=== PATIENT | male | born 1955 | race African-American/Black ===

== ENCOUNTER 2020-06-07 16:21 | Inpatient (IN) | payer OTHER, MEDICARE, MEDICAID ==
[~2020-06-07] VITALS: Ht 175.3 cm; Wt 86.2 kg
[2020-06-07] MEDS ORDERED: SODIUM CHLORIDE 0.9% 250 ML IV ONE (17:20)
[2020-06-07 19:08] LABS: HEMATOCRIT. 35.3 % (42.0-52.0); HEMOGLOBIN. 11.4 g/dL (14.0-18.0); MEAN CORPUSCULAR HEMOGLOBIN 29.5 pg (28.0-32.0); MEAN CORPUSCULAR VOLUME 91.4 fL (80.0-94.0); MEAN PLATELET VOLUME 8.5 fl (7.4-10.4); PLATELET 259 x1000/uL (130-400); RED BLOOD CELL COUNT 3.86 mill/uL (4.7-6.1); RED CELL DISTRIBUTION WIDTH 18.1 % (11.6-14.6)
[2020-06-07 19:15] LABS: CHLORIDE 96 mEq/L (98-107)
[2020-06-07 19:21] LABS: INR 1.2
[2020-06-07 19:28] LABS: PLATELET ESTIMATE NORMAL
[2020-06-07] MEDS ORDERED: INSULIN REGULAR (HUMULIN R) 300UNITS/3ML IV ONE (19:30)
[2020-06-07] MEDS ORDERED: SODIUM BICARBONATE 8.4% 1 MEQ/ML 50ML SYR IV ONE (19:30)
[2020-06-07] MEDS ORDERED: DEXTROSE 50% WATER 50ML SYRINGE IV ONE (19:30)
[2020-06-07] MEDS ORDERED: LORAZEPAM 2MG/ML CPJ IM ONE (19:45)
[2020-06-07] MEDS ORDERED: VANCOMYCIN 1 G PREMIX 200 ML IV ONE (20:00)
[2020-06-07] MEDS ORDERED: PIPERACILLIN/TAZ 3.375G PREMIX 50 ML IV ONE (20:00)
[2020-06-07 20:41] LABS: CLARITY URINE TURBID (CLEAR); COLOR URINE YELLOW (YELLOW); KETONES URINE TRACE (NEGATIVE); LEUKOCYTE ESTERASE URINE 3+ (NEGATIVE); NITRITE URINE NEGATIVE (NEGATIVE); OCCULT BLOOD URINE 3+ (NEGATIVE); PH URINE 7.5 (4.5-8.0); PROTEIN URINE 4+ (NEGATIVE); SPECIFIC GRAVITY URINE 1.019 (1.005-1.030); UROBILINOGEN URINE 0.2 E.U./dL (0.2-1.0)
[2020-06-07] MEDS: LISINOPRIL 40MG TABLET PO SCH (22:00)
[2020-06-07] MEDS ORDERED: CEFTRIAXONE 1 G PREMIX 50 ML IV SCH (22:00)
[2020-06-07] MEDS: METOPROLOL TARTRATE 25MG TABLET PO SCH ×2 (22:00→22:11)
[2020-06-07] MEDS ORDERED: AMLODIPINE 10MG TABLET PO SCH (22:00)
[2020-06-07] MEDS: AMLODIPINE 5MG TABLET PO SCH (22:00)
[2020-06-07] MEDS: CLONIDINE 0.1MG TABLET PO PRN (22:12)
[2020-06-07 23:00] VITALS: BP_SYST 176; BP_SYST 185; BP_DIAS 112
[2020-06-07] MEDS: LABETALOL 5MG/ML SYR 20 MG/4 ML SYRINGE IV PRN (23:18)
[2020-06-08] VITALS: BP 179/98
[2020-06-08] MEDS: CLONIDINE 0.1MG TABLET PO PRN (01:43)
[2020-06-08] MEDS: ENOXAPARIN 30MG/0.3ML SYR SUBCUT SCH ×2 (03:33→20:39)
[2020-06-08] MEDS ORDERED: CEFTRIAXONE 1,000 MG in DEXTROSE 5% WATER 50 ML IV SCH (04:00)
[2020-06-08 05:36] VITALS: BP 171/98
[2020-06-08] MEDS: LABETALOL 5MG/ML SYR 20 MG/4 ML SYRINGE IV PRN (05:46)
[2020-06-08 07:14] LABS: BASOPHILS % 0.3 % (0.0-2.0); EOSINOPHILS % 0.3 % (0.0-5.0); HEMATOCRIT. 32.9 % (42.0-52.0); HEMOGLOBIN. 10.7 g/dL (14.0-18.0); LYMPHOCYTES % 8.6 % (20.0-50.0); MEAN CORPUSCULAR HEMOGLOBIN 29.8 pg (28.0-32.0); MEAN PLATELET VOLUME 8.8 fl (7.4-10.4); MONOCYTES % 8.9 % (2.0-8.0); NEUTROPHILS % 81.9 % (40.0-76.0); PLATELET 222 x1000/uL (130-400); RED BLOOD CELL COUNT 3.57 mill/uL (4.7-6.1); RED CELL DISTRIBUTION WIDTH 18.6 % (11.6-14.6)
[2020-06-08 08:00] VITALS: BP 162/89
[2020-06-08 08:16] LABS: CHLORIDE 97 mEq/L (98-107)
[2020-06-08 10:51] LABS: HEPATITIS B SURFACE AB < 3.1 mIU/mL
[2020-06-08 11:02] LABS: HEPATITIS B SURFACE ANTIGEN NEGATIVE
[2020-06-08 11:32] LABS: HEPATITIS A AB IGM NEGATIVE (NEGATIVE)
[2020-06-08 12:00] VITALS: BP 156/95
[2020-06-08] MEDS: LISINOPRIL 40MG TABLET PO SCH (14:11)
[2020-06-08] MEDS: AMLODIPINE 5MG TABLET PO SCH (14:11)
[2020-06-08] MEDS: METOPROLOL TARTRATE 25MG TABLET PO SCH (14:11)
[2020-06-08 16:00] VITALS: BP 159/95
[2020-06-08] MEDS: CEFTRIAXONE 1,000 MG in DEXTROSE 5% WATER 50 ML IV SCH (17:38)
[2020-06-08 20:00] VITALS: BP 158/85
[2020-06-08] MEDS: KETOROLAC 15MG/ML VIAL IV PRN (20:39)
[2020-06-09] VITALS: BP 133/71
[2020-06-09] MEDS: KETOROLAC 15MG/ML VIAL IV PRN ×3 (03:08→23:13)
[2020-06-09 04:00] VITALS: BP 138/73
[2020-06-09 08:00] VITALS: BP 136/78
[2020-06-09] MEDS: AMLODIPINE 5MG TABLET PO SCH (09:14)
[2020-06-09] MEDS: LISINOPRIL 40MG TABLET PO SCH (09:14)
[2020-06-09] MEDS: METOPROLOL TARTRATE 25MG TABLET PO SCH ×2 (09:15→23:14)
[2020-06-09 12:00] VITALS: BP 141/80
[2020-06-09] MEDS ORDERED: GENTAMICIN SULFATE 160 MG in SODIUM CHLORIDE 0.9% 50 ML IV NR (12:00)
[2020-06-09] MEDS: ACETAMINOPHEN 325MG TABLET PO PRN (14:38)
[2020-06-09 17:00] LABS: HEMATOCRIT. 32.9 % (42.0-52.0); MEAN CORPUSCULAR HEMOGLOBIN 30.6 pg (28.0-32.0); MEAN CORPUSCULAR VOLUME 91.7 fL (80.0-94.0); MEAN PLATELET VOLUME 8.9 fl (7.4-10.4); PLATELET 208 x1000/uL (130-400); RED BLOOD CELL COUNT 3.59 mill/uL (4.7-6.1); RED CELL DISTRIBUTION WIDTH 18.2 % (11.6-14.6)
[2020-06-09 17:18] LABS: PLATELET ESTIMATE NORMAL
[2020-06-09] MEDS: CEFTRIAXONE 1,000 MG in DEXTROSE 5% WATER 50 ML IV SCH (18:22)
[2020-06-09] MEDS: HYDROCODONE/APAP 7.5/325MG 1 TAB TABLET PO PRN (19:07)
[2020-06-09 20:28] VITALS: BP 148/89
[2020-06-09] MEDS: ENOXAPARIN 30MG/0.3ML SYR SUBCUT SCH (23:13)
[2020-06-09] MEDS: DIPHENHYDRAMINE 50MG/ML VIAL IV PRN (23:25)
[2020-06-10 00:28] VITALS: BP 166/83
[2020-06-10] MEDS: HYDROCODONE/APAP 7.5/325MG 1 TAB TABLET PO PRN ×3 (01:54→17:25)
[2020-06-10 04:00] VITALS: BP 141/96
[2020-06-10 06:02] LABS: BASOPHILS % 0.4 % (0.0-2.0); EOSINOPHILS % 2.4 % (0.0-5.0); HEMATOCRIT. 33.3 % (42.0-52.0); HEMOGLOBIN. 11.3 g/dL (14.0-18.0); LYMPHOCYTES % 9.6 % (20.0-50.0); MEAN CORPUSCULAR HEMOGLOBIN 31.2 pg (28.0-32.0); MEAN CORPUSCULAR VOLUME 91.8 fL (80.0-94.0); MEAN PLATELET VOLUME 8.6 fl (7.4-10.4); MONOCYTES % 10.2 % (2.0-8.0); NEUTROPHILS % 77.4 % (40.0-76.0); PLATELET 182 x1000/uL (130-400); RED BLOOD CELL COUNT 3.63 mill/uL (4.7-6.1); RED CELL DISTRIBUTION WIDTH 17.6 % (11.6-14.6)
[2020-06-10 06:04] LABS: GENTAMICIN RANDOM 3.7 ug/mL
[2020-06-10 08:00] VITALS: BP 134/95
[2020-06-10 12:00] VITALS: BP 159/92
[2020-06-10] MEDS: KETOROLAC 15MG/ML VIAL IV PRN ×2 (12:41→20:55)
[2020-06-10] MEDS: AMLODIPINE 5MG TABLET PO SCH (13:15)
[2020-06-10] MEDS: METOPROLOL TARTRATE 25MG TABLET PO SCH ×2 (13:15→20:47)
[2020-06-10] MEDS: LISINOPRIL 40MG TABLET PO SCH (13:16)
[2020-06-10 16:00] VITALS: BP 110/78
[2020-06-10] MEDS ORDERED: GENTAMICIN 120MG PREMIX 100 ML IV NR (17:00)
[2020-06-10] MEDS: CEFTRIAXONE 1,000 MG in DEXTROSE 5% WATER 50 ML IV SCH (17:22)
[2020-06-10 20:00] VITALS: BP 156/85
[2020-06-10] MEDS: ENOXAPARIN 30MG/0.3ML SYR SUBCUT SCH (20:46)
[2020-06-11] MEDS: HYDROCODONE/APAP 7.5/325MG 1 TAB TABLET PO PRN ×3 (02:02→22:48)
[2020-06-11 04:00] VITALS: BP 138/79
[2020-06-11] MEDS: KETOROLAC 15MG/ML VIAL IV PRN ×2 (05:40→15:43)
[2020-06-11 08:00] VITALS: BP 153/82
[2020-06-11] MEDS: LISINOPRIL 40MG TABLET PO SCH (09:08)
[2020-06-11] MEDS: AMLODIPINE 5MG TABLET PO SCH (09:09)
[2020-06-11] MEDS: METOPROLOL TARTRATE 25MG TABLET PO SCH ×2 (09:09→20:05)
[2020-06-11 12:00] VITALS: BP 134/84
[2020-06-11 16:00] VITALS: BP 111/60
[2020-06-11] MEDS: CEFTRIAXONE 1,000 MG in DEXTROSE 5% WATER 50 ML IV SCH (17:55)
[2020-06-11 20:00] VITALS: BP 139/80
[2020-06-11] MEDS: DIPHENHYDRAMINE 50MG/ML VIAL IV PRN (20:04)
[2020-06-11] MEDS: ENOXAPARIN 30MG/0.3ML SYR SUBCUT SCH (20:08)
[2020-06-11] MEDS: ZOLPIDEM TARTRATE 5MG TABLET PO PRN (21:10)
[2020-06-12 01:29] VITALS: BP 144/74
[2020-06-12] MEDS: KETOROLAC 15MG/ML VIAL IV PRN ×3 (01:29→18:30)
[2020-06-12] MEDS: HYDROCODONE/APAP 7.5/325MG 1 TAB TABLET PO PRN ×3 (05:06→22:01)
[2020-06-12 05:09] VITALS: BP 151/81
[2020-06-12 08:00] VITALS: BP 135/81
[2020-06-12] MEDS: LISINOPRIL 40MG TABLET PO SCH (08:35)
[2020-06-12] MEDS: METOPROLOL TARTRATE 25MG TABLET PO SCH ×2 (08:35→22:01)
[2020-06-12] MEDS: AMLODIPINE 10MG TABLET PO SCH (08:35)
[2020-06-12] MEDS: DIPHENHYDRAMINE 50MG/ML VIAL IV PRN (10:56)
[2020-06-12 12:00] VITALS: BP 137/80
[2020-06-12 16:00] VITALS: BP 149/81
[2020-06-12] MEDS: CEFTRIAXONE 1,000 MG in DEXTROSE 5% WATER 50 ML IV SCH (17:10)
[2020-06-12 21:48] VITALS: BP 129/78
[2020-06-12] MEDS: ZOLPIDEM TARTRATE 5MG TABLET PO PRN (22:01)
[2020-06-12] MEDS: ENOXAPARIN 30MG/0.3ML SYR SUBCUT SCH (22:02)
[2020-06-13] VITALS: BP 122/75
[2020-06-13] MEDS: KETOROLAC 15MG/ML VIAL IV PRN (00:10)
[2020-06-13 04:00] VITALS: BP 129/83
[2020-06-13] MEDS: HYDROCODONE/APAP 7.5/325MG 1 TAB TABLET PO PRN ×3 (04:06→22:37)
[2020-06-13 07:37] LABS: BASOPHILS % 0.3 % (0.0-2.0); EOSINOPHILS % 1.8 % (0.0-5.0); HEMATOCRIT. 26.9 % (42.0-52.0); HEMOGLOBIN. 8.6 g/dL (14.0-18.0); LYMPHOCYTES % 9.4 % (20.0-50.0); MEAN CORPUSCULAR HEMOGLOBIN 29.2 pg (28.0-32.0); MEAN CORPUSCULAR VOLUME 90.9 fL (80.0-94.0); MEAN PLATELET VOLUME 9.3 fl (7.4-10.4); NEUTROPHILS % 79.5 % (40.0-76.0); PLATELET 186 x1000/uL (130-400); RED BLOOD CELL COUNT 2.96 mill/uL (4.7-6.1); RED CELL DISTRIBUTION WIDTH 17.7 % (11.6-14.6)
[2020-06-13] MEDS: METOPROLOL TARTRATE 25MG TABLET PO SCH ×2 (09:00→22:54)
[2020-06-13] MEDS: AMLODIPINE 10MG TABLET PO SCH (09:00)
[2020-06-13 10:25] VITALS: BP 132/73
[2020-06-13 20:00] VITALS: BP 141/84
[2020-06-13] MEDS: ENOXAPARIN 30MG/0.3ML SYR SUBCUT SCH (22:37)
[2020-06-13] MEDS: CEFTRIAXONE 1,000 MG in DEXTROSE 5% WATER 50 ML IV SCH (22:38)
[2020-06-14] MEDS: ZOLPIDEM TARTRATE 5MG TABLET PO PRN ×2 (01:14→20:56)
[2020-06-14 04:00] VITALS: BP 123/72
[2020-06-14 08:00] VITALS: BP 123/64
[2020-06-14 08:57] LABS: BASOPHILS % 0.4 % (0.0-2.0); EOSINOPHILS % 1.4 % (0.0-5.0); HEMATOCRIT. 23.3 % (42.0-52.0); HEMOGLOBIN. 7.7 g/dL (14.0-18.0); LYMPHOCYTES % 11.6 % (20.0-50.0); MEAN CORPUSCULAR HEMOGLOBIN 29.9 pg (28.0-32.0); MEAN CORPUSCULAR VOLUME 90.6 fL (80.0-94.0); NEUTROPHILS % 76.6 % (40.0-76.0); PLATELET 178 x1000/uL (130-400); RED BLOOD CELL COUNT 2.58 mill/uL (4.7-6.1); RED CELL DISTRIBUTION WIDTH 18.1 % (11.6-14.6)
[2020-06-14] MEDS: METOPROLOL TARTRATE 25MG TABLET PO SCH ×2 (09:00→20:56)
[2020-06-14] MEDS: AMLODIPINE 10MG TABLET PO SCH (09:00)
[2020-06-14 12:00] VITALS: BP 126/63
[2020-06-14] MEDS: HYDROCODONE/APAP 7.5/325MG 1 TAB TABLET PO PRN (16:51)
[2020-06-14 20:00] VITALS: BP 126/57
[2020-06-14] MEDS: DIPHENHYDRAMINE 50MG/ML VIAL IV PRN (22:52)
[2020-06-14] MEDS: EPOETIN ALFA 10000UNITS/ML VIAL SUBCUT SCH (23:18)
[2020-06-15] VITALS: BP 107/48
[2020-06-15 08:00] VITALS: BP 109/40
[2020-06-15] MEDS: METOPROLOL TARTRATE 25MG TABLET PO SCH ×2 (08:23→21:00)
[2020-06-15] MEDS: AMLODIPINE 10MG TABLET PO SCH (08:23)
[2020-06-15 12:00] VITALS: BP 100/48
[2020-06-15] MEDS: ACETAMINOPHEN 325MG TABLET PO PRN ×2 (14:22→21:06)
[2020-06-15 16:00] VITALS: BP 108/37
[2020-06-15 20:00] VITALS: BP 93/50
[2020-06-15] MEDS: ZOLPIDEM TARTRATE 5MG TABLET PO PRN (22:33)
[2020-06-16] VITALS (78 sets, daily range): BP systolic 67–174; BP diastolic 32–91
[2020-06-16] MEDS: ACETAMINOPHEN 325MG TABLET PO PRN (04:49)
[2020-06-16] MEDS: METOPROLOL TARTRATE 25MG TABLET PO SCH ×2 (08:37→20:55)
[2020-06-16] MEDS: AMLODIPINE 10MG TABLET PO SCH (08:37)
[2020-06-16] MEDS ORDERED: SODIUM BICARBONATE 8.4% 1 MEQ/ML 50ML SYR IV ONE (09:00)
[2020-06-16] MEDS ORDERED: VECURONIUM BROMIDE 10 MG/VIAL IV ONE (09:00)
[2020-06-16] MEDS ORDERED: ATROPINE SULFATE 1MG/10ML SYR ONE (09:00)
[2020-06-16] MEDS ORDERED: CALCIUM CHLORIDE 1GM/10ML SYR IV ONE (09:00)
[2020-06-16] MEDS ORDERED: SODIUM CHLORIDE 0.9% 10ML VIAL ONE (09:00)
[2020-06-16] MEDS ORDERED: EPINEPHRINE 0.1MG/ML (1:10,000) 10ML SYR ONE (09:00)
[2020-06-16] MEDS ORDERED: ETOMIDATE 2MG/ML 10ML VIAL IV ONE (09:00)
[2020-06-16] MEDS ORDERED: DEXTROSE 50% WATER 50ML SYRINGE IV ONE (09:42)
[2020-06-16 11:03] LABS: BASOPHILS % 0.4 % (0.0-2.0); EOSINOPHILS % 0.2 % (0.0-5.0); MEAN CORPUSCULAR HEMOGLOBIN 29.6 pg (28.0-32.0); MEAN PLATELET VOLUME 9.4 fl (7.4-10.4); MONOCYTES % 3.6 % (2.0-8.0); NEUTROPHILS % 83.8 % (40.0-76.0); PLATELET 294 x1000/uL (130-400); RED BLOOD CELL COUNT 1.38 mill/uL (4.7-6.1); RED CELL DISTRIBUTION WIDTH 18.5 % (11.6-14.6)
[2020-06-16 11:05] LABS: BG FRACTION INSPIRED OXYGEN 100; BG HCO3 ACT 6.5 mmol/L (22.0-26.0); BG PCO2 31.3 mmHg (35.0-45.0); BG PH 6.933 (7.350-7.450); BG PO2 150.8 mmHg (75.0-100.0); BG SAMPLE SITE RIGHT RADIAL; BG TOTAL HEMOGLOBIN < 4.5 g/dL (12.0-18.0); BG VENT MODE VENT - AC
[2020-06-16 11:07] LABS: HEMATOCRIT. 13.8 % (42.0-52.0)
[2020-06-16] MEDS ORDERED: DEXTROSE 50% WATER 50ML SYRINGE IV NR (11:07)
[2020-06-16 11:08] LABS: HEMOGLOBIN. 4.1 g/dL (14.0-18.0); MEAN CORPUSCULAR VOLUME 99.9 fL (80.0-94.0)
[2020-06-16 11:11] LABS: CHLORIDE 98 mEq/L (98-107)
[2020-06-16] MEDS ORDERED: SODIUM BICARBONATE 8.4% 1 MEQ/ML 50ML SYR IV NR (11:15)
[2020-06-16] MEDS ORDERED: PIPERACILLIN/TAZOBACTAM 3.375 G in DEXT 5% WATER 100 ML IV SCH (11:45)
[2020-06-16 11:53] LABS: PHOSPHORUS 8.2 mg/dL (2.5-4.9)
[2020-06-16] MEDS: PANTOPRAZOLE SODIUM 40 MG/VIAL IV SCH ×2 (12:09→21:18)
[2020-06-16] MEDS: NOREPINEPHRINE 32 MG in DEXT 5% WATER 218 ML IV PRN (12:17)
[2020-06-16] MEDS ORDERED: INSULIN REGULAR (HUMULIN R) UD 100 UNITS/ML SYR IV NR (13:00)
[2020-06-16] MEDS: PROPOFOL 10MG/ML 100ML 100 ML IV PRN ×3 (13:02→21:05)
[2020-06-16] MEDS ORDERED: SODIUM BICARBONATE 150 MEQ in DEXTROSE 5% WATER 850 ML IV SCH (13:30)
[2020-06-16] MEDS: PIPERACILLIN SODIUM/TAZOBACTAM 4.5 G in DEXT 5% WATER 100 ML IV SCH (19:01)
[2020-06-16] MEDS: SUCRALFATE 1 G/10 ML UDC NG SCH ×2 (19:01→23:42)
[2020-06-16 20:31] LABS: HEMATOCRIT 20.9 % (42.0-52.0); HEMOGLOBIN 6.9 g/dL (14.0-18.0)
[2020-06-16] MEDS: EPOETIN ALFA 10000UNITS/ML VIAL SUBCUT SCH (21:18)
[2020-06-17] VITALS (100 sets, daily range): BP systolic 82–140; BP diastolic 40–68
[2020-06-17] MEDS: PIPERACILLIN SODIUM/TAZOBACTAM 4.5 G in DEXT 5% WATER 100 ML IV SCH ×2 (01:18→13:09)
[2020-06-17] MEDS: PROPOFOL 10MG/ML 100ML 100 ML IV PRN ×6 (01:22→22:57)
[2020-06-17] MEDS: NOREPINEPHRINE 32 MG in DEXT 5% WATER 218 ML IV PRN (02:55)
[2020-06-17] MEDS: SUCRALFATE 1 G/10 ML UDC NG SCH ×3 (05:01→17:58)
[2020-06-17 05:33] LABS: HEMATOCRIT. 23.9 % (42.0-52.0); HEMOGLOBIN. 8.3 g/dL (14.0-18.0); MEAN CORPUSCULAR HEMOGLOBIN 30.5 pg (28.0-32.0); MEAN CORPUSCULAR VOLUME 87.8 fL (80.0-94.0); MEAN PLATELET VOLUME 8.8 fl (7.4-10.4); PLATELET 166 x1000/uL (130-400); RED BLOOD CELL COUNT 2.72 mill/uL (4.7-6.1); RED CELL DISTRIBUTION WIDTH 15.4 % (11.6-14.6)
[2020-06-17 05:41] LABS: CHLORIDE 104 mEq/L (98-107)
[2020-06-17] MEDS: METOPROLOL TARTRATE 25MG TABLET PO SCH ×2 (08:45→20:36)
[2020-06-17] MEDS: PANTOPRAZOLE SODIUM 40 MG/VIAL IV SCH ×2 (08:45→20:37)
[2020-06-17] MEDS: AMLODIPINE 10MG TABLET PO SCH (08:46)
[2020-06-17 08:54] LABS: BG BASE EXCESS 4.3 mmol/L (-2.0-2.0); BG CARBOXYHEMOGLOBIN 0.3 % (0.5-1.5); BG DEOXYHEMOGLOBIN 1.5 % (0.0-5.0); BG FRACTION INSPIRED OXYGEN 100; BG HCO3 ACT 26.2 mmol/L (22.0-26.0); BG METHEMOGLOBIN 0.4 % (0.0-1.5); BG OXYGEN SATURATION 98.5 % (92.0-98.5); BG OXYHEMOGLOBIN 97.8 % (94.0-97.0); BG PH 7.574 (7.350-7.450); BG PO2 139.4 mmHg (75.0-100.0); BG SAMPLE SITE LEFT BRACHIAL; BG TOTAL HEMOGLOBIN 8.5 g/dL (12.0-18.0); BG VENT MODE VENT - AC
[2020-06-17 10:08] LABS: PLATELET ESTIMATE NORMAL
[2020-06-17] MEDS: ASCORBIC ACID 500 MG TABLET PO SCH (12:40)
[2020-06-17] MEDS: ZINC SULFATE 220 MG ( 50 ) CAPSULE PO SCH (12:40)
[2020-06-17 15:26] LABS: HEMATOCRIT 23.8 % (42.0-52.0)
[2020-06-17] MEDS: PIPERACILLIN/TAZOBACTAM 2.25 G in DEXTROSE 5% WATER 50 ML IV SCH (20:47)
[2020-06-17] MEDS: IPRATROPIUM/ALBUTEROL 0.5-3(2.5)MG/3ML NEB HHN SCH (20:48)
[2020-06-18] VITALS (62 sets, daily range): BP systolic 80–138; BP diastolic 43–78
[2020-06-18] MEDS: SUCRALFATE 1 G/10 ML UDC NG SCH ×5 (00:27→23:36)
[2020-06-18 01:09] LABS: HEMOGLOBIN 7.9 g/dL (14.0-18.0)
[2020-06-18] MEDS: IPRATROPIUM/ALBUTEROL 0.5-3(2.5)MG/3ML NEB HHN SCH ×4 (01:35→20:40)
[2020-06-18] MEDS: PIPERACILLIN/TAZOBACTAM 2.25 G in DEXTROSE 5% WATER 50 ML IV SCH ×4 (02:03→19:57)
[2020-06-18] MEDS: PROPOFOL 10MG/ML 100ML 100 ML IV PRN ×2 (05:07→11:56)
[2020-06-18 06:58] LABS: HEMATOCRIT. 25.1 % (42.0-52.0); HEMOGLOBIN. 8.6 g/dL (14.0-18.0); MEAN CORPUSCULAR HEMOGLOBIN 30.5 pg (28.0-32.0); MEAN CORPUSCULAR VOLUME 89.4 fL (80.0-94.0); MEAN PLATELET VOLUME 9.1 fl (7.4-10.4); PLATELET 101 x1000/uL (130-400); RED BLOOD CELL COUNT 2.81 mill/uL (4.7-6.1); RED CELL DISTRIBUTION WIDTH 16.4 % (11.6-14.6)
[2020-06-18] MEDS: METOPROLOL TARTRATE 25MG TABLET PO SCH (08:39)
[2020-06-18] MEDS: AMLODIPINE 10MG TABLET PO SCH (08:40)
[2020-06-18] MEDS: PANTOPRAZOLE SODIUM 40 MG/VIAL IV SCH ×2 (08:45→20:04)
[2020-06-18] MEDS: ASCORBIC ACID 500 MG TABLET PO SCH (08:45)
[2020-06-18] MEDS: ZINC SULFATE 220 MG ( 50 ) CAPSULE PO SCH (08:45)
[2020-06-18 09:14] LABS: BG CARBOXYHEMOGLOBIN 0.2 % (0.5-1.5); BG DEOXYHEMOGLOBIN 3.8 % (0.0-5.0); BG FRACTION INSPIRED OXYGEN 30; BG HCO3 ACT 27.7 mmol/L (22.0-26.0); BG METHEMOGLOBIN 0.5 % (0.0-1.5); BG OXYGEN SATURATION 96.2 % (92.0-98.5); BG OXYHEMOGLOBIN 95.5 % (94.0-97.0); BG PCO2 37.6 mmHg (35.0-45.0); BG PH 7.485 (7.350-7.450); BG PO2 84.6 mmHg (75.0-100.0); BG SAMPLE SITE LEFT BRACHIAL; BG TOTAL HEMOGLOBIN 8.6 g/dL (12.0-18.0); BG VENT MODE VENT - AC
[2020-06-18 11:52] LABS: PLATELET ESTIMATE DECREASED
[2020-06-18] MEDS ORDERED: VANCOMYCIN 1 G PREMIX 200 ML IV SCH (14:00)
[2020-06-18] MEDS ORDERED: LORAZEPAM 2MG/ML CPJ IV NR (15:00)
[2020-06-18] MEDS ORDERED: LORAZEPAM 2MG/ML CPJ IM NR (15:00)
[2020-06-18] MEDS ORDERED: VANCOMYCIN 1500MG in DEXTROSE 5% WATER 250ML IV NR (18:00)
[2020-06-18] MEDS: EPOETIN ALFA 10000UNITS/ML VIAL SUBCUT SCH (20:04)
[2020-06-19] VITALS (55 sets, daily range): BP systolic 84–170; BP diastolic 30–78
[2020-06-19] MEDS: LORAZEPAM 2MG/ML CPJ IV PRN ×2 (01:03→04:34)
[2020-06-19] MEDS: PIPERACILLIN/TAZOBACTAM 2.25 G in DEXTROSE 5% WATER 50 ML IV SCH ×4 (01:03→20:21)
[2020-06-19] MEDS: DIPHENHYDRAMINE 50MG/ML VIAL IV PRN ×2 (01:16→05:02)
[2020-06-19] MEDS: IPRATROPIUM/ALBUTEROL 0.5-3(2.5)MG/3ML NEB HHN SCH ×4 (02:20→20:15)
[2020-06-19] MEDS: SUCRALFATE 1 G/10 ML UDC NG SCH ×3 (05:02→17:35)
[2020-06-19 05:44] LABS: HEMATOCRIT. 24.1 % (42.0-52.0); HEMOGLOBIN. 8.1 g/dL (14.0-18.0); MEAN CORPUSCULAR HEMOGLOBIN 30.5 pg (28.0-32.0); MEAN CORPUSCULAR VOLUME 91.2 fL (80.0-94.0); MEAN PLATELET VOLUME 8.7 fl (7.4-10.4); PLATELET 131 x1000/uL (130-400); RED BLOOD CELL COUNT 2.64 mill/uL (4.7-6.1); RED CELL DISTRIBUTION WIDTH 16.4 % (11.6-14.6)
[2020-06-19] MEDS ORDERED: LIDOCAINE HCL 1% 20ML VIAL (Pyxis) INJ ONE (07:28)
[2020-06-19] MEDS ORDERED: SODIUM BICARBONATE 4% (2.4MEQ) 5ML VIAL IV ONE (07:28)
[2020-06-19] MEDS: PROPOFOL 10MG/ML 100ML 100 ML IV PRN ×2 (07:39→12:41)
[2020-06-19 09:18] LABS: PLATELET ESTIMATE NORMAL
[2020-06-19] MEDS: ASCORBIC ACID 500 MG TABLET PO SCH (09:42)
[2020-06-19] MEDS: ZINC SULFATE 220 MG ( 50 ) CAPSULE PO SCH (09:42)
[2020-06-19] MEDS: PANTOPRAZOLE SODIUM 40 MG/VIAL IV SCH ×2 (09:42→20:20)
[2020-06-19 10:54] LABS: BG BASE EXCESS 1.9 mmol/L (-2.0-2.0); BG CARBOXYHEMOGLOBIN 0.3 % (0.5-1.5); BG DEOXYHEMOGLOBIN 5.3 % (0.0-5.0); BG FRACTION INSPIRED OXYGEN 30; BG HCO3 ACT 25.1 mmol/L (22.0-26.0); BG METHEMOGLOBIN 0.2 % (0.0-1.5); BG OXYGEN SATURATION 94.7 % (92.0-98.5); BG OXYHEMOGLOBIN 94.2 % (94.0-97.0); BG PCO2 33.5 mmHg (35.0-45.0); BG PH 7.493 (7.350-7.450); BG PO2 72.8 mmHg (75.0-100.0); BG SAMPLE SITE RIGHT RADIAL; BG TOTAL HEMOGLOBIN 8.3 g/dL (12.0-18.0); BG VENT MODE VENT - AC
[2020-06-19 18:03] LABS: BG BASE EXCESS -1.5 mmol/L (-2.0-2.0); BG CARBOXYHEMOGLOBIN 0.3 % (0.5-1.5); BG DEOXYHEMOGLOBIN 5.7 % (0.0-5.0); BG FRACTION INSPIRED OXYGEN 30; BG METHEMOGLOBIN 0.3 % (0.0-1.5); BG OXYGEN SATURATION 94.3 % (92.0-98.5); BG OXYHEMOGLOBIN 93.7 % (94.0-97.0); BG PCO2 31.9 mmHg (35.0-45.0); BG PH 7.456 (7.350-7.450); BG PO2 74.2 mmHg (75.0-100.0); BG SAMPLE SITE RIGHT RADIAL; BG TOTAL HEMOGLOBIN 8.3 g/dL (12.0-18.0); BG VENT MODE VENT - AC
[2020-06-19] MEDS: NOREPINEPHRINE 32 MG in DEXT 5% WATER 218 ML IV PRN (18:24)
[2020-06-20] VITALS (84 sets, daily range): BP systolic 82–173; BP diastolic 33–110
[2020-06-20] MEDS: SUCRALFATE 1 G/10 ML UDC NG SCH ×4 (00:02→19:49)
[2020-06-20] MEDS: IPRATROPIUM/ALBUTEROL 0.5-3(2.5)MG/3ML NEB HHN SCH ×4 (02:01→20:09)
[2020-06-20] MEDS: PIPERACILLIN/TAZOBACTAM 2.25 G in DEXTROSE 5% WATER 50 ML IV SCH ×4 (02:52→19:49)
[2020-06-20] MEDS: PROPOFOL 10MG/ML 100ML 100 ML IV PRN ×2 (05:11→14:45)
[2020-06-20 05:53] LABS: HEMATOCRIT. 21.7 % (42.0-52.0); HEMOGLOBIN. 7.3 g/dL (14.0-18.0); MEAN CORPUSCULAR HEMOGLOBIN 30.3 pg (28.0-32.0); MEAN CORPUSCULAR VOLUME 90.3 fL (80.0-94.0); MEAN PLATELET VOLUME 9.5 fl (7.4-10.4); PLATELET 144 x1000/uL (130-400); RED BLOOD CELL COUNT 2.41 mill/uL (4.7-6.1); RED CELL DISTRIBUTION WIDTH 16.5 % (11.6-14.6)
[2020-06-20] MEDS: PANTOPRAZOLE SODIUM 40 MG/VIAL IV SCH ×2 (08:26→22:02)
[2020-06-20] MEDS: ZINC SULFATE 220 MG ( 50 ) CAPSULE PO SCH (08:26)
[2020-06-20] MEDS: ASCORBIC ACID 500 MG TABLET PO SCH (08:26)
[2020-06-20 09:11] LABS: BG BASE EXCESS 0.4 mmol/L (-2.0-2.0); BG CARBOXYHEMOGLOBIN 0.9 % (0.5-1.5); BG DEOXYHEMOGLOBIN 3.7 % (0.0-5.0); BG FRACTION INSPIRED OXYGEN 35; BG HCO3 ACT 24.1 mmol/L (22.0-26.0); BG METHEMOGLOBIN 0.3 % (0.0-1.5); BG OXYGEN SATURATION 96.3 % (92.0-98.5); BG OXYHEMOGLOBIN 95.1 % (94.0-97.0); BG PCO2 34.4 mmHg (35.0-45.0); BG PH 7.463 (7.350-7.450); BG SAMPLE SITE RIGHT RADIAL; BG TOTAL HEMOGLOBIN 6.9 g/dL (12.0-18.0); BG VENT MODE VENT - AC
[2020-06-20 09:23] LABS: PLATELET ESTIMATE NORMAL
[2020-06-20] MEDS: NOREPINEPHRINE 32 MG in DEXT 5% WATER 218 ML IV PRN ×2 (10:10→17:10)
[2020-06-20] MEDS ORDERED: VANCOMYCIN 1 G PREMIX 200 ML IV SCH (14:00)
[2020-06-21] VITALS (74 sets, daily range): BP systolic 87–194; BP diastolic 33–116
[2020-06-21] MEDS: SUCRALFATE 1 G/10 ML UDC NG SCH ×4 (01:07→17:19)
[2020-06-21] MEDS: PROPOFOL 10MG/ML 100ML 100 ML IV PRN ×2 (01:19→05:37)
[2020-06-21] MEDS: IPRATROPIUM/ALBUTEROL 0.5-3(2.5)MG/3ML NEB HHN SCH ×4 (01:52→20:16)
[2020-06-21] MEDS: PIPERACILLIN/TAZOBACTAM 2.25 G in DEXTROSE 5% WATER 50 ML IV SCH ×4 (02:11→20:52)
[2020-06-21 08:05] LABS: BG BASE EXCESS 1.9 mmol/L (-2.0-2.0); BG CARBOXYHEMOGLOBIN 0.3 % (0.5-1.5); BG DEOXYHEMOGLOBIN 3.7 % (0.0-5.0); BG FRACTION INSPIRED OXYGEN 35; BG HCO3 ACT 25.4 mmol/L (22.0-26.0); BG METHEMOGLOBIN 0.1 % (0.0-1.5); BG OXYGEN SATURATION 96.3 % (92.0-98.5); BG OXYHEMOGLOBIN 95.9 % (94.0-97.0); BG PCO2 35.6 mmHg (35.0-45.0); BG PH 7.472 (7.350-7.450); BG PO2 88.2 mmHg (75.0-100.0); BG SAMPLE SITE RIGHT RADIAL; BG TOTAL HEMOGLOBIN 9.4 g/dL (12.0-18.0); BG TOTAL RESPIRATORY RATE 21 b/min; BG VENT MODE VENT - AC
[2020-06-21] MEDS: PANTOPRAZOLE SODIUM 40 MG/VIAL IV SCH ×2 (10:21→21:56)
[2020-06-21] MEDS: ZINC SULFATE 220 MG ( 50 ) CAPSULE PO SCH (10:21)
[2020-06-21] MEDS: ASCORBIC ACID 500 MG TABLET PO SCH (10:21)
[2020-06-21 11:10] LABS: CHLORIDE 101 mEq/L (98-107)
[2020-06-21 12:41] LABS: HEMATOCRIT. 26.4 % (42.0-52.0); HEMOGLOBIN. 8.9 g/dL (14.0-18.0); MEAN CORPUSCULAR HEMOGLOBIN 29.5 pg (28.0-32.0); MEAN CORPUSCULAR VOLUME 87.6 fL (80.0-94.0); MEAN PLATELET VOLUME 8.6 fl (7.4-10.4); PLATELET 163 x1000/uL (130-400); RED BLOOD CELL COUNT 3.02 mill/uL (4.7-6.1); RED CELL DISTRIBUTION WIDTH 16.6 % (11.6-14.6)
[2020-06-21 12:52] LABS: CHLORIDE 101 mEq/L (98-107)
[2020-06-21 13:13] LABS: BG BASE EXCESS 1.3 mmol/L (-2.0-2.0); BG CARBOXYHEMOGLOBIN 0.3 % (0.5-1.5); BG DEOXYHEMOGLOBIN 2.4 % (0.0-5.0); BG FRACTION INSPIRED OXYGEN 35; BG HCO3 ACT 25.2 mmol/L (22.0-26.0); BG METHEMOGLOBIN 0.3 % (0.0-1.5); BG OXYGEN SATURATION 97.6 % (92.0-98.5); BG PCO2 36.6 mmHg (35.0-45.0); BG PH 7.455 (7.350-7.450); BG SAMPLE SITE RIGHT RADIAL; BG TOTAL HEMOGLOBIN 9.5 g/dL (12.0-18.0); BG TOTAL RESPIRATORY RATE 22 b/min; BG VENT MODE VENT - CPAP
[2020-06-21 14:40] LABS: PLATELET ESTIMATE NORMAL
[2020-06-22] VITALS (39 sets, daily range): BP systolic 113–161; BP diastolic 60–91
[2020-06-22] MEDS: IPRATROPIUM/ALBUTEROL 0.5-3(2.5)MG/3ML NEB HHN SCH ×3 (02:26→21:00)
[2020-06-22 05:43] LABS: BASOPHILS % 0.4 % (0.0-2.0); EOSINOPHILS % 3.6 % (0.0-5.0); HEMATOCRIT. 30.5 % (42.0-52.0); HEMOGLOBIN. 10.1 g/dL (14.0-18.0); LYMPHOCYTES % 7.2 % (20.0-50.0); MEAN CORPUSCULAR HEMOGLOBIN 29.4 pg (28.0-32.0); MEAN CORPUSCULAR VOLUME 88.8 fL (80.0-94.0); MEAN PLATELET VOLUME 9.1 fl (7.4-10.4); MONOCYTES % 7.9 % (2.0-8.0); NEUTROPHILS % 80.9 % (40.0-76.0); PLATELET 180 x1000/uL (130-400); RED BLOOD CELL COUNT 3.44 mill/uL (4.7-6.1); RED CELL DISTRIBUTION WIDTH 16.6 % (11.6-14.6)
[2020-06-22 05:48] LABS: CHLORIDE 101 mEq/L (98-107)
[2020-06-22 08:22] LABS: BG BASE EXCESS 0.3 mmol/L (-2.0-2.0); BG CARBOXYHEMOGLOBIN 0.3 % (0.5-1.5); BG DEOXYHEMOGLOBIN 4.5 % (0.0-5.0); BG FRACTION INSPIRED OXYGEN 36; BG HCO3 ACT 24.4 mmol/L (22.0-26.0); BG METHEMOGLOBIN 0.2 % (0.0-1.5); BG OXYGEN SATURATION 95.5 % (92.0-98.5); BG PCO2 37.4 mmHg (35.0-45.0); BG PH 7.432 (7.350-7.450); BG PO2 81.8 mmHg (75.0-100.0); BG SAMPLE SITE LEFT RADIAL; BG TOTAL HEMOGLOBIN 10.2 g/dL (12.0-18.0); BG VENT MODE NASAL CANNULA
[2020-06-22] MEDS: ASCORBIC ACID 500 MG TABLET PO SCH (08:26)
[2020-06-22] MEDS: SUCRALFATE 1 G/10 ML UDC NG SCH ×4 (08:26→18:11)
[2020-06-22] MEDS: ZINC SULFATE 220 MG ( 50 ) CAPSULE PO SCH (08:26)
[2020-06-22] MEDS: PANTOPRAZOLE SODIUM 40 MG/VIAL IV SCH ×2 (08:26→23:41)
[2020-06-22] MEDS ORDERED: VANCOMYCIN 750 MG PREMIX 150 ML IV SCH (17:00)
[2020-06-22] MEDS ORDERED: DEXTROSE 50% WATER 50ML SYRINGE IV PRN (22:00)
[2020-06-22] MEDS: LORAZEPAM 2MG/ML CPJ IV PRN (23:41)
[2020-06-23] VITALS (12 sets, daily range): BP systolic 124–148; BP diastolic 66–91
[2020-06-23] MEDS: SUCRALFATE 1 G/10 ML UDC NG SCH ×4 (00:30→18:07)
[2020-06-23] MEDS: IPRATROPIUM/ALBUTEROL 0.5-3(2.5)MG/3ML NEB HHN SCH ×4 (01:47→21:04)
[2020-06-23] MEDS: BLOOD SUGAR DIAGNOSTIC STRIP TEST SCH ×4 (06:50→21:00)
[2020-06-23] MEDS: ASCORBIC ACID 500 MG TABLET PO SCH (09:16)
[2020-06-23] MEDS: ZINC SULFATE 220 MG ( 50 ) CAPSULE PO SCH (09:16)
[2020-06-23] MEDS: PANTOPRAZOLE SODIUM 40 MG/VIAL IV SCH ×2 (09:16→21:08)
[2020-06-23] MEDS: INSULIN LISPRO 100 UNITS/ML SUBCUT SCH ×4 (09:17→21:00)
[2020-06-24] VITALS (12 sets, daily range): BP systolic 119–147; BP diastolic 59–91
[2020-06-24] MEDS: IPRATROPIUM/ALBUTEROL 0.5-3(2.5)MG/3ML NEB HHN SCH ×4 (02:23→20:04)
[2020-06-24] MEDS: SUCRALFATE 1 G/10 ML UDC NG SCH ×4 (03:06→20:35)
[2020-06-24] MEDS ORDERED: LORAZEPAM 2MG/ML CPJ IV PRN (04:45)
[2020-06-24] MEDS: BLOOD SUGAR DIAGNOSTIC STRIP TEST SCH ×4 (06:08→21:00)
[2020-06-24 07:13] LABS: EOSINOPHILS % 4.4 % (0.0-5.0); HEMOGLOBIN. 9.5 g/dL (14.0-18.0); LYMPHOCYTES % 10.4 % (20.0-50.0); MEAN CORPUSCULAR HEMOGLOBIN 29.6 pg (28.0-32.0); MEAN CORPUSCULAR VOLUME 87.7 fL (80.0-94.0); MEAN PLATELET VOLUME 8.7 fl (7.4-10.4); MONOCYTES % 11.4 % (2.0-8.0); NEUTROPHILS % 72.8 % (40.0-76.0); PLATELET 268 x1000/uL (130-400); RED CELL DISTRIBUTION WIDTH 16.6 % (11.6-14.6)
[2020-06-24] MEDS: INSULIN LISPRO 100 UNITS/ML SUBCUT SCH ×4 (07:20→22:10)
[2020-06-24 08:38] LABS: CHLORIDE 103 mEq/L (98-107)
[2020-06-24] MEDS: PANTOPRAZOLE SODIUM 40 MG/VIAL IV SCH ×2 (09:39→20:35)
[2020-06-24] MEDS: ASCORBIC ACID 500 MG TABLET PO SCH (09:40)
[2020-06-24] MEDS: ACETAMINOPHEN 325MG TABLET PO PRN (09:40)
[2020-06-24] MEDS: ZINC SULFATE 220 MG ( 50 ) CAPSULE PO SCH (09:40)
[2020-06-24] MEDS ORDERED: HEPARIN SODIUM 1,000 UNIT/1ML VIAL IV NR (17:00)
[2020-06-24] MEDS: LORAZEPAM 2MG/ML CPJ IV PRN (21:51)
[2020-06-25] VITALS (12 sets, daily range): BP systolic 92–157; BP diastolic 21–100
[2020-06-25] MEDS: IPRATROPIUM/ALBUTEROL 0.5-3(2.5)MG/3ML NEB HHN SCH ×6 (00:13→20:55)
[2020-06-25] MEDS: ACETYLCYSTEINE 100MG/ML 10% VIAL 4ML INH SCH ×4 (00:13→20:55)
[2020-06-25] MEDS: SUCRALFATE 1 G/10 ML UDC NG SCH ×4 (01:06→17:41)
[2020-06-25] MEDS: DIPHENHYDRAMINE 50MG/ML VIAL IV PRN ×2 (01:10→11:11)
[2020-06-25] MEDS: BLOOD SUGAR DIAGNOSTIC STRIP TEST SCH ×4 (06:22→20:32)
[2020-06-25] MEDS: INSULIN LISPRO 100 UNITS/ML SUBCUT SCH ×4 (07:20→20:39)
[2020-06-25 07:22] LABS: BASOPHILS % 0.8 % (0.0-2.0); EOSINOPHILS % 4.3 % (0.0-5.0); HEMATOCRIT. 28.3 % (42.0-52.0); HEMOGLOBIN. 9.5 g/dL (14.0-18.0); MEAN CORPUSCULAR HEMOGLOBIN 29.4 pg (28.0-32.0); MEAN CORPUSCULAR VOLUME 87.4 fL (80.0-94.0); MEAN PLATELET VOLUME 8.8 fl (7.4-10.4); MONOCYTES % 9.1 % (2.0-8.0); NEUTROPHILS % 74.8 % (40.0-76.0); PLATELET 300 x1000/uL (130-400); RED BLOOD CELL COUNT 3.24 mill/uL (4.7-6.1); RED CELL DISTRIBUTION WIDTH 16.3 % (11.6-14.6)
[2020-06-25] MEDS: ACETAMINOPHEN 325MG TABLET PO PRN (08:17)
[2020-06-25] MEDS: PANTOPRAZOLE SODIUM 40 MG/VIAL IV SCH ×2 (08:17→20:32)
[2020-06-25] MEDS: ZINC SULFATE 220 MG ( 50 ) CAPSULE PO SCH (08:17)
[2020-06-25] MEDS: ASCORBIC ACID 500 MG TABLET PO SCH (08:17)
[2020-06-25 16:48] LABS: CLARITY URINE TURBID (CLEAR); KETONES URINE NEGATIVE (NEGATIVE); LEUKOCYTE ESTERASE URINE 3+ (NEGATIVE); NITRITE URINE NEGATIVE (NEGATIVE); OCCULT BLOOD URINE 3+ (NEGATIVE); PH URINE 7.5 (4.5-8.0); PROTEIN URINE 3+ (NEGATIVE); SPECIFIC GRAVITY URINE 1.011 (1.005-1.030); UROBILINOGEN URINE 0.2 E.U./dL (0.2-1.0)
[2020-06-25 17:02] LABS: COLOR URINE DARK YELLOW (YELLOW)
[2020-06-25] MEDS ORDERED: THROAT LOZENGES-BENZOCAINE/MENTH/CETYLPYRD CL LOZENGES MM PRN (18:15)
[2020-06-26] VITALS (12 sets, daily range): BP systolic 116–143; BP diastolic 62–82
[2020-06-26] MEDS: IPRATROPIUM/ALBUTEROL 0.5-3(2.5)MG/3ML NEB HHN SCH ×7 (00:50→22:45)
[2020-06-26] MEDS: INSULIN LISPRO 100 UNITS/ML SUBCUT SCH ×4 (05:56→21:00)
[2020-06-26] MEDS: SUCRALFATE 1 G/10 ML UDC NG SCH ×4 (05:56→17:38)
[2020-06-26] MEDS: BLOOD SUGAR DIAGNOSTIC STRIP TEST SCH ×4 (05:56→21:37)
[2020-06-26] MEDS: ACETYLCYSTEINE 100MG/ML 10% VIAL 4ML INH SCH ×3 (07:40→23:44)
[2020-06-26] MEDS: PANTOPRAZOLE SODIUM 40 MG/VIAL IV SCH ×2 (08:47→21:33)
[2020-06-26] MEDS: ZINC SULFATE 220 MG ( 50 ) CAPSULE PO SCH (08:48)
[2020-06-26] MEDS: ASCORBIC ACID 500 MG TABLET PO SCH (08:48)
[2020-06-26] MEDS: TAMSULOSIN HCL 0.4MG SR CAPSULE PO SCH (10:56)
[2020-06-26] MEDS: CEFTRIAXONE 1,000 MG in DEXTROSE 5% WATER 50 ML IV SCH (10:56)
[2020-06-26] MEDS: ACETAMINOPHEN 325MG TABLET PO PRN (11:22)
[2020-06-26] MEDS: ONDANSETRON HCL 4MG/2ML INJ IV PRN ×2 (11:29→17:56)
[2020-06-26] MEDS: THROAT LOZENGES-BENZOCAINE/MENTH/CETYLPYRD CL LOZENGES MM PRN (13:11)
[2020-06-26] MEDS: KETOROLAC 15MG/ML VIAL IV PRN (13:12)
[2020-06-26 16:18] LABS: CHLORIDE 104 mEq/L (98-107)
[2020-06-27] VITALS (12 sets, daily range): BP systolic 113–137; BP diastolic 42–98
[2020-06-27] MEDS: SUCRALFATE 1 G/10 ML UDC NG SCH ×5 (00:08→23:49)
[2020-06-27] MEDS: IPRATROPIUM/ALBUTEROL 0.5-3(2.5)MG/3ML NEB HHN SCH ×4 (04:33→15:30)
[2020-06-27 06:38] LABS: BASOPHILS % 0.8 % (0.0-2.0); EOSINOPHILS % 5.4 % (0.0-5.0); HEMATOCRIT. 26.4 % (42.0-52.0); LYMPHOCYTES % 12.9 % (20.0-50.0); MEAN CORPUSCULAR HEMOGLOBIN 29.8 pg (28.0-32.0); MEAN PLATELET VOLUME 8.4 fl (7.4-10.4); MONOCYTES % 7.7 % (2.0-8.0); NEUTROPHILS % 73.2 % (40.0-76.0); PLATELET 339 x1000/uL (130-400)
[2020-06-27] MEDS: BLOOD SUGAR DIAGNOSTIC STRIP TEST SCH ×4 (06:51→21:00)
[2020-06-27] MEDS: INSULIN LISPRO 100 UNITS/ML SUBCUT SCH ×4 (07:20→21:00)
[2020-06-27] MEDS: ACETYLCYSTEINE 100MG/ML 10% VIAL 4ML INH SCH (07:23)
[2020-06-27] MEDS: PANTOPRAZOLE SODIUM 40 MG/VIAL IV SCH ×2 (09:32→22:12)
[2020-06-27] MEDS: ASCORBIC ACID 500 MG TABLET PO SCH (09:33)
[2020-06-27] MEDS: ZINC SULFATE 220 MG ( 50 ) CAPSULE PO SCH (09:33)
[2020-06-27] MEDS: TAMSULOSIN HCL 0.4MG SR CAPSULE PO SCH (09:39)
[2020-06-27] MEDS: THROAT LOZENGES-BENZOCAINE/MENTH/CETYLPYRD CL LOZENGES MM PRN ×2 (10:07→18:23)
[2020-06-27] MEDS: CEFTRIAXONE 1,000 MG in DEXTROSE 5% WATER 50 ML IV SCH (11:27)
[2020-06-27 17:56] LABS: BG BASE EXCESS 0.1 mmol/L (-2.0-2.0); BG CARBOXYHEMOGLOBIN 0.3 % (0.5-1.5); BG DEOXYHEMOGLOBIN 9.7 % (0.0-5.0); BG FRACTION INSPIRED OXYGEN 21; BG METHEMOGLOBIN 0.1 % (0.0-1.5); BG OXYGEN SATURATION 90.3 % (92.0-98.5); BG OXYHEMOGLOBIN 89.9 % (94.0-97.0); BG PCO2 35.7 mmHg (35.0-45.0); BG PH 7.445 (7.350-7.450); BG PO2 58.4 mmHg (75.0-100.0); BG SAMPLE SITE LEFT RADIAL; BG TOTAL HEMOGLOBIN 10.1 g/dL (12.0-18.0); BG VENT MODE ROOM AIR
[2020-06-27] MEDS: KETOROLAC 15MG/ML VIAL IV PRN (19:36)
[2020-06-27] MEDS ORDERED: VISCOUS LIDOCAINE 2% 15 ML UDC MM PRN (20:00)
[2020-06-27] MEDS: DIPHENHYDRAMINE 50MG/ML VIAL IV PRN (22:12)
[2020-06-28] VITALS (9 sets, daily range): BP systolic 135–169; BP diastolic 71–103
[2020-06-28] MEDS: INSULIN LISPRO 100 UNITS/ML SUBCUT SCH ×4 (06:28→21:00)
[2020-06-28] MEDS: BLOOD SUGAR DIAGNOSTIC STRIP TEST SCH ×3 (06:28→16:50)
[2020-06-28] MEDS: SUCRALFATE 1 G/10 ML UDC NG SCH ×3 (06:28→17:00)
[2020-06-28] MEDS: CLONIDINE 0.1MG TABLET PO PRN (07:53)
[2020-06-28] MEDS: ZINC SULFATE 220 MG ( 50 ) CAPSULE PO SCH (08:56)
[2020-06-28] MEDS: ASCORBIC ACID 500 MG TABLET PO SCH (08:56)
[2020-06-28] MEDS: PANTOPRAZOLE SODIUM 40 MG/VIAL IV SCH (08:56)
[2020-06-28] MEDS: TAMSULOSIN HCL 0.4MG SR CAPSULE PO SCH (08:58)
[2020-06-28] MEDS: KETOROLAC 15MG/ML VIAL IV PRN (09:05)
[2020-06-28] MEDS: LORAZEPAM 2MG/ML CPJ IV PRN (09:05)
[2020-06-28] MEDS: IPRATROPIUM/ALBUTEROL 0.5-3(2.5)MG/3ML NEB HHN SCH ×4 (09:10→20:23)
[2020-06-28] MEDS: ACETYLCYSTEINE 100MG/ML 10% VIAL 4ML INH SCH ×3 (09:10→15:45)
[2020-06-28] MEDS: NICOTINE 21MG PATCH TD SCH (11:29)
[2020-06-28] MEDS: CEFTRIAXONE 1,000 MG in DEXTROSE 5% WATER 50 ML IV SCH (11:34)
[2020-06-28] MEDS: OMEPRAZOLE 20MG CAPSULE EXTENDED RELEASE PO SCH (23:10)
[2020-06-29] VITALS: BP 131/80
[2020-06-29] MEDS: LORAZEPAM 2MG/ML CPJ IV PRN (00:23)
[2020-06-29] MEDS: ACETYLCYSTEINE 100MG/ML 10% VIAL 4ML INH SCH ×2 (00:34→12:47)
[2020-06-29] MEDS: IPRATROPIUM/ALBUTEROL 0.5-3(2.5)MG/3ML NEB HHN SCH ×7 (00:34→20:54)
[2020-06-29] MEDS: CLONIDINE 0.1MG TABLET PO PRN ×2 (03:30→09:11)
[2020-06-29 04:00] VITALS: BP 168/107
[2020-06-29] MEDS: INSULIN LISPRO 100 UNITS/ML SUBCUT SCH ×3 (07:50→17:50)
[2020-06-29] MEDS: SUCRALFATE 1 G/10 ML UDC NG SCH ×2 (08:09→17:55)
[2020-06-29] MEDS: OMEPRAZOLE 20MG CAPSULE EXTENDED RELEASE PO SCH ×2 (08:10→22:11)
[2020-06-29] MEDS: ASCORBIC ACID 500 MG TABLET PO SCH (08:10)
[2020-06-29] MEDS: ZINC SULFATE 220 MG ( 50 ) CAPSULE PO SCH (08:10)
[2020-06-29] MEDS: NICOTINE 21MG PATCH TD SCH (08:11)
[2020-06-29] MEDS: TAMSULOSIN HCL 0.4MG SR CAPSULE PO SCH (08:11)
[2020-06-29 12:21] LABS: BASOPHILS % 1.2 % (0.0-2.0); EOSINOPHILS % 6.7 % (0.0-5.0); HEMATOCRIT. 29.5 % (42.0-52.0); HEMOGLOBIN. 9.9 g/dL (14.0-18.0); LYMPHOCYTES % 18.1 % (20.0-50.0); MEAN CORPUSCULAR HEMOGLOBIN 29.7 pg (28.0-32.0); MEAN CORPUSCULAR VOLUME 88.4 fL (80.0-94.0); MEAN PLATELET VOLUME 8.2 fl (7.4-10.4); MONOCYTES % 5.8 % (2.0-8.0); NEUTROPHILS % 68.2 % (40.0-76.0); PLATELET 371 x1000/uL (130-400); RED BLOOD CELL COUNT 3.34 mill/uL (4.7-6.1); RED CELL DISTRIBUTION WIDTH 15.9 % (11.6-14.6)
[2020-06-29] MEDS: BLOOD SUGAR DIAGNOSTIC STRIP TEST SCH ×3 (13:04→21:00)
[2020-06-29] MEDS ORDERED: HEPARIN SODIUM 1,000 UNIT/1ML VIAL IV NR (15:15)
[2020-06-29] MEDS: CEFTRIAXONE 1,000 MG in DEXTROSE 5% WATER 50 ML IV SCH (17:55)
[2020-06-29 20:00] VITALS: BP 116/70
[2020-06-30] VITALS: BP 142/70
[2020-06-30] MEDS: IPRATROPIUM/ALBUTEROL 0.5-3(2.5)MG/3ML NEB HHN SCH ×5 (02:45→21:06)
[2020-06-30 04:00] VITALS: BP 141/87
[2020-06-30] MEDS: OMEPRAZOLE 20MG CAPSULE EXTENDED RELEASE PO SCH ×2 (07:36→21:00)
[2020-06-30] MEDS: BLOOD SUGAR DIAGNOSTIC STRIP TEST SCH ×4 (07:37→21:00)
[2020-06-30] MEDS: INSULIN LISPRO 100 UNITS/ML SUBCUT SCH ×4 (07:50→21:00)
[2020-06-30] MEDS: SUCRALFATE 1 G/10 ML UDC NG SCH ×2 (08:25→17:00)
[2020-06-30] MEDS: ZINC SULFATE 220 MG ( 50 ) CAPSULE PO SCH (08:26)
[2020-06-30] MEDS: ASCORBIC ACID 500 MG TABLET PO SCH (08:26)
[2020-06-30] MEDS: TAMSULOSIN HCL 0.4MG SR CAPSULE PO SCH (08:28)
[2020-06-30] MEDS: NICOTINE 21MG PATCH TD SCH (08:29)
[2020-06-30] MEDS: CEFTRIAXONE 1,000 MG in DEXTROSE 5% WATER 50 ML IV SCH (10:33)
[2020-06-30] MEDS ORDERED: LACTULOSE 20G/30ML UDC PO NR (11:15)
[2020-06-30 12:00] VITALS: BP 147/83
[2020-06-30] MEDS: DOCUSATE SODIUM 100MG CAPSULE PO SCH ×2 (12:06→17:00)
[2020-06-30] MEDS ORDERED: NA PHOS,M-B/NA PHOS,DI-BA ENEMA 118ML PR PRN (12:15)
[2020-06-30] MEDS: LORAZEPAM 2MG/ML CPJ IV PRN ×2 (14:30→23:37)
[2020-06-30 16:00] VITALS: BP 144/86
[2020-06-30 20:00] VITALS: BP 159/101
[2020-07-01] VITALS: BP 146/91
[2020-07-01] MEDS: IPRATROPIUM/ALBUTEROL 0.5-3(2.5)MG/3ML NEB HHN SCH ×6 (00:30→21:31)
[2020-07-01 04:00] VITALS: BP 156/95
[2020-07-01] MEDS: OMEPRAZOLE 20MG CAPSULE EXTENDED RELEASE PO SCH ×2 (07:20→22:02)
[2020-07-01] MEDS: BLOOD SUGAR DIAGNOSTIC STRIP TEST SCH ×4 (07:20→21:00)
[2020-07-01] MEDS: INSULIN LISPRO 100 UNITS/ML SUBCUT SCH ×4 (07:50→21:00)
[2020-07-01 08:00] VITALS: BP 172/107
[2020-07-01] MEDS: SUCRALFATE 1 G/10 ML UDC NG SCH ×2 (09:00→17:12)
[2020-07-01 10:02] LABS: BASOPHILS % 1.1 % (0.0-2.0); EOSINOPHILS % 6.5 % (0.0-5.0); HEMATOCRIT. 34.1 % (42.0-52.0); HEMOGLOBIN. 11.2 g/dL (14.0-18.0); LYMPHOCYTES % 17.7 % (20.0-50.0); MEAN CORPUSCULAR HEMOGLOBIN 29.2 pg (28.0-32.0); MEAN CORPUSCULAR VOLUME 88.7 fL (80.0-94.0); MEAN PLATELET VOLUME 7.7 fl (7.4-10.4); MONOCYTES % 6.2 % (2.0-8.0); NEUTROPHILS % 68.5 % (40.0-76.0); PLATELET 381 x1000/uL (130-400); RED BLOOD CELL COUNT 3.84 mill/uL (4.7-6.1); RED CELL DISTRIBUTION WIDTH 15.7 % (11.6-14.6)
[2020-07-01] MEDS: DOCUSATE SODIUM 100MG CAPSULE PO SCH ×2 (10:09→17:12)
[2020-07-01] MEDS: TAMSULOSIN HCL 0.4MG SR CAPSULE PO SCH (10:10)
[2020-07-01] MEDS: ZINC SULFATE 220 MG ( 50 ) CAPSULE PO SCH (10:10)
[2020-07-01] MEDS: CLONIDINE 0.1MG TABLET PO PRN (10:10)
[2020-07-01] MEDS: ASCORBIC ACID 500 MG TABLET PO SCH (10:10)
[2020-07-01] MEDS: NICOTINE 21MG PATCH TD SCH (10:11)
[2020-07-01] MEDS: LORAZEPAM 2MG/ML CPJ IV PRN (10:35)
[2020-07-01] MEDS: CEFTRIAXONE 1,000 MG in DEXTROSE 5% WATER 50 ML IV SCH (10:35)
[2020-07-01 12:00] VITALS: BP 148/102
[2020-07-01 16:00] VITALS: BP 127/73
[2020-07-01] MEDS: ACETAMINOPHEN 325MG TABLET PO PRN (17:12)
[2020-07-01 20:00] VITALS: BP 130/80
[2020-07-02] VITALS: BP 144/72
[2020-07-02 04:00] VITALS: BP 154/83
[2020-07-02] MEDS: IPRATROPIUM/ALBUTEROL 0.5-3(2.5)MG/3ML NEB HHN SCH ×5 (04:53→21:36)
[2020-07-02 06:04] LABS: BASOPHILS % 1.5 % (0.0-2.0); EOSINOPHILS % 7.3 % (0.0-5.0); HEMOGLOBIN. 9.6 g/dL (14.0-18.0); LYMPHOCYTES % 20.7 % (20.0-50.0); MEAN CORPUSCULAR HEMOGLOBIN 29.1 pg (28.0-32.0); MEAN CORPUSCULAR VOLUME 87.4 fL (80.0-94.0); MEAN PLATELET VOLUME 8.1 fl (7.4-10.4); MONOCYTES % 7.8 % (2.0-8.0); NEUTROPHILS % 62.7 % (40.0-76.0); PLATELET 342 x1000/uL (130-400); RED BLOOD CELL COUNT 3.32 mill/uL (4.7-6.1); RED CELL DISTRIBUTION WIDTH 15.7 % (11.6-14.6)
[2020-07-02] MEDS: OMEPRAZOLE 20MG CAPSULE EXTENDED RELEASE PO SCH ×2 (06:45→22:46)
[2020-07-02] MEDS: BLOOD SUGAR DIAGNOSTIC STRIP TEST SCH ×4 (06:48→21:00)
[2020-07-02] MEDS: INSULIN LISPRO 100 UNITS/ML SUBCUT SCH ×4 (07:50→21:00)
[2020-07-02 08:00] VITALS: BP 113/90
[2020-07-02] MEDS: SUCRALFATE 1 G/10 ML UDC NG SCH ×2 (09:19→18:33)
[2020-07-02] MEDS: ASCORBIC ACID 500 MG TABLET PO SCH (09:19)
[2020-07-02] MEDS: TAMSULOSIN HCL 0.4MG SR CAPSULE PO SCH (09:20)
[2020-07-02] MEDS: NICOTINE 21MG PATCH TD SCH (09:20)
[2020-07-02] MEDS: DOCUSATE SODIUM 100MG CAPSULE PO SCH ×2 (09:20→18:33)
[2020-07-02] MEDS: ZINC SULFATE 220 MG ( 50 ) CAPSULE PO SCH (09:20)
[2020-07-02 12:00] VITALS: BP 145/72
[2020-07-02] MEDS: ONDANSETRON HCL 4MG/2ML INJ IV PRN (15:15)
[2020-07-02] MEDS: THROAT LOZENGES-BENZOCAINE/MENTH/CETYLPYRD CL LOZENGES MM PRN (15:16)
[2020-07-02] MEDS: DIPHENHYDRAMINE 50MG/ML VIAL IV PRN (15:16)
[2020-07-02] MEDS: ACETAMINOPHEN 325MG TABLET PO PRN (15:16)
[2020-07-02 16:00] VITALS: BP 134/78
[2020-07-03] MEDS: IPRATROPIUM/ALBUTEROL 0.5-3(2.5)MG/3ML NEB HHN SCH ×5 (01:45→20:46)
[2020-07-03] MEDS: ONDANSETRON HCL 4MG/2ML INJ IV PRN (02:55)
[2020-07-03] MEDS: OMEPRAZOLE 20MG CAPSULE EXTENDED RELEASE PO SCH ×2 (06:34→21:44)
[2020-07-03] MEDS: BLOOD SUGAR DIAGNOSTIC STRIP TEST SCH ×4 (06:37→21:44)
[2020-07-03] MEDS ORDERED: KETOROLAC 15MG/ML VIAL IV PRN (07:00)
[2020-07-03] MEDS: INSULIN LISPRO 100 UNITS/ML SUBCUT SCH ×3 (07:50→21:00)
[2020-07-03] MEDS: SUCRALFATE 1 G/10 ML UDC NG SCH ×2 (09:02→17:00)
[2020-07-03] MEDS: ZINC SULFATE 220 MG ( 50 ) CAPSULE PO SCH (09:02)
[2020-07-03] MEDS: ASCORBIC ACID 500 MG TABLET PO SCH (09:02)
[2020-07-03] MEDS: NICOTINE 21MG PATCH TD SCH (09:03)
[2020-07-03] MEDS: TAMSULOSIN HCL 0.4MG SR CAPSULE PO SCH (09:03)
[2020-07-03] MEDS: DOCUSATE SODIUM 100MG CAPSULE PO SCH ×2 (09:03→17:00)
[2020-07-03] MEDS: THROAT LOZENGES-BENZOCAINE/MENTH/CETYLPYRD CL LOZENGES MM PRN (09:07)
[2020-07-03 20:00] VITALS: BP 123/79
[2020-07-03] MEDS: LORAZEPAM 2MG/ML CPJ IV PRN (21:44)
[2020-07-04] MEDS: IPRATROPIUM/ALBUTEROL 0.5-3(2.5)MG/3ML NEB HHN SCH ×6 (00:06→21:45)
[2020-07-04 01:30] VITALS: BP 144/92
[2020-07-04] MEDS: DIPHENHYDRAMINE 50MG/ML VIAL IV PRN (01:47)
[2020-07-04] MEDS: THROAT LOZENGES-BENZOCAINE/MENTH/CETYLPYRD CL LOZENGES MM PRN ×2 (02:13→20:03)
[2020-07-04 04:00] VITALS: BP 153/94
[2020-07-04 07:12] LABS: BASOPHILS % 0.9 % (0.0-2.0); EOSINOPHILS % 5.1 % (0.0-5.0); HEMATOCRIT. 26.4 % (42.0-52.0); HEMOGLOBIN. 8.8 g/dL (14.0-18.0); LYMPHOCYTES % 21.2 % (20.0-50.0); MEAN CORPUSCULAR HEMOGLOBIN 29.2 pg (28.0-32.0); MEAN CORPUSCULAR VOLUME 87.4 fL (80.0-94.0); MONOCYTES % 7.6 % (2.0-8.0); NEUTROPHILS % 65.2 % (40.0-76.0); PLATELET 325 x1000/uL (130-400); RED BLOOD CELL COUNT 3.02 mill/uL (4.7-6.1); RED CELL DISTRIBUTION WIDTH 15.9 % (11.6-14.6)
[2020-07-04] MEDS: BLOOD SUGAR DIAGNOSTIC STRIP TEST SCH ×4 (07:20→20:05)
[2020-07-04] MEDS: INSULIN LISPRO 100 UNITS/ML SUBCUT SCH ×4 (07:50→20:05)
[2020-07-04] MEDS: ASCORBIC ACID 500 MG TABLET PO SCH (09:00)
[2020-07-04] MEDS: DOCUSATE SODIUM 100MG CAPSULE PO SCH ×2 (09:16→17:00)
[2020-07-04] MEDS: ZINC SULFATE 220 MG ( 50 ) CAPSULE PO SCH (09:16)
[2020-07-04] MEDS: MAGNESIUM HYDROXIDE 400MG/5ML 30ML UDC PO PRN (09:17)
[2020-07-04] MEDS: SUCRALFATE 1 G/10 ML UDC NG SCH ×2 (09:17→17:00)
[2020-07-04] MEDS: OMEPRAZOLE 20MG CAPSULE EXTENDED RELEASE PO SCH ×2 (09:17→20:01)
[2020-07-04] MEDS: TAMSULOSIN HCL 0.4MG SR CAPSULE PO SCH (09:17)
[2020-07-04] MEDS: NICOTINE 21MG PATCH TD SCH (09:18)
[2020-07-04] MEDS: CLONIDINE 0.1MG TABLET PO PRN (09:18)
[2020-07-04 12:00] VITALS: BP 162/83
[2020-07-04] MEDS ORDERED: HEPARIN SODIUM 1,000 UNIT/1ML VIAL IV NR (14:45)
[2020-07-04 16:00] VITALS: BP 156/87
[2020-07-04 20:00] VITALS: BP 118/90
[2020-07-04] MEDS: LORAZEPAM 2MG/ML CPJ IV PRN (20:14)
[2020-07-05 04:00] VITALS: BP 154/82
[2020-07-05] MEDS: ACETAMINOPHEN 325MG TABLET PO PRN ×2 (04:24→21:02)
[2020-07-05] MEDS: THROAT LOZENGES-BENZOCAINE/MENTH/CETYLPYRD CL LOZENGES MM PRN (04:26)
[2020-07-05] MEDS: OMEPRAZOLE 20MG CAPSULE EXTENDED RELEASE PO SCH ×2 (07:01→21:01)
[2020-07-05] MEDS: BLOOD SUGAR DIAGNOSTIC STRIP TEST SCH ×4 (07:01→21:00)
[2020-07-05] MEDS: INSULIN LISPRO 100 UNITS/ML SUBCUT SCH ×4 (07:50→21:00)
[2020-07-05 08:00] VITALS: BP 142/85
[2020-07-05] MEDS: DOCUSATE SODIUM 100MG CAPSULE PO SCH ×2 (08:08→17:00)
[2020-07-05] MEDS: SUCRALFATE 1 G/10 ML UDC NG SCH ×2 (08:08→17:00)
[2020-07-05] MEDS: TAMSULOSIN HCL 0.4MG SR CAPSULE PO SCH (08:08)
[2020-07-05] MEDS: ZINC SULFATE 220 MG ( 50 ) CAPSULE PO SCH (08:08)
[2020-07-05] MEDS: ASCORBIC ACID 500 MG TABLET PO SCH (08:09)
[2020-07-05] MEDS: NICOTINE 21MG PATCH TD SCH (08:09)
[2020-07-05] MEDS: IPRATROPIUM/ALBUTEROL 0.5-3(2.5)MG/3ML NEB HHN SCH ×3 (09:50→22:45)
[2020-07-05 12:00] VITALS: BP 139/82
[2020-07-05] MEDS: ONDANSETRON HCL 4MG/2ML INJ IV PRN (14:11)
[2020-07-05] MEDS: DIPHENHYDRAMINE 50MG/ML VIAL IV PRN (14:23)
[2020-07-05 16:11] LABS: BASOPHILS % 0.9 % (0.0-2.0); EOSINOPHILS % 6.5 % (0.0-5.0); HEMOGLOBIN. 9.7 g/dL (14.0-18.0); LYMPHOCYTES % 25.8 % (20.0-50.0); MEAN CORPUSCULAR HEMOGLOBIN 29.3 pg (28.0-32.0); MEAN CORPUSCULAR VOLUME 87.8 fL (80.0-94.0); MEAN PLATELET VOLUME 8.3 fl (7.4-10.4); MONOCYTES % 7.8 % (2.0-8.0); PLATELET 306 x1000/uL (130-400); RED CELL DISTRIBUTION WIDTH 15.5 % (11.6-14.6)
[2020-07-05 20:00] VITALS: BP 149/88
[2020-07-06] VITALS: BP 145/80
[2020-07-06] MEDS: IPRATROPIUM/ALBUTEROL 0.5-3(2.5)MG/3ML NEB HHN SCH ×5 (01:25→19:30)
[2020-07-06 04:00] VITALS: BP 140/75
[2020-07-06] MEDS: OMEPRAZOLE 20MG CAPSULE EXTENDED RELEASE PO SCH ×2 (06:54→23:53)
[2020-07-06] MEDS: BLOOD SUGAR DIAGNOSTIC STRIP TEST SCH ×4 (07:20→21:00)
[2020-07-06] MEDS: INSULIN LISPRO 100 UNITS/ML SUBCUT SCH ×4 (07:50→21:00)
[2020-07-06 08:00] VITALS: BP 162/93
[2020-07-06] MEDS: ZINC SULFATE 220 MG ( 50 ) CAPSULE PO SCH (09:18)
[2020-07-06] MEDS: NICOTINE 21MG PATCH TD SCH (09:18)
[2020-07-06] MEDS: TAMSULOSIN HCL 0.4MG SR CAPSULE PO SCH (09:18)
[2020-07-06] MEDS: ASCORBIC ACID 500 MG TABLET PO SCH (09:19)
[2020-07-06] MEDS: SUCRALFATE 1 G/10 ML UDC NG SCH (09:19)
[2020-07-06] MEDS: DOCUSATE SODIUM 100MG CAPSULE PO SCH (09:19)
[2020-07-06] MEDS ORDERED: KETOROLAC 15MG/ML VIAL IV PRN (09:30)
[2020-07-06] MEDS: DOCUSATE SODIUM 250MG CAPSULE PO SCH (14:48)
[2020-07-06 20:00] VITALS: BP 147/87
[2020-07-06] MEDS: SORBITOL 70% SOLN 30ML PO PRN (23:53)
[2020-07-07] VITALS: BP 141/86
[2020-07-07] MEDS: LORAZEPAM 2MG/ML CPJ IV PRN (01:02)
[2020-07-07 04:00] VITALS: BP 155/93
[2020-07-07] MEDS: IPRATROPIUM/ALBUTEROL 0.5-3(2.5)MG/3ML NEB HHN SCH ×3 (04:02→21:32)
[2020-07-07] MEDS: OMEPRAZOLE 20MG CAPSULE EXTENDED RELEASE PO SCH ×2 (07:13→21:00)
[2020-07-07] MEDS: BLOOD SUGAR DIAGNOSTIC STRIP TEST SCH ×4 (07:20→21:00)
[2020-07-07] MEDS: INSULIN LISPRO 100 UNITS/ML SUBCUT SCH ×4 (07:50→21:00)
[2020-07-07 08:30] VITALS: BP 147/96
[2020-07-07] MEDS: NICOTINE 21MG PATCH TD SCH (09:00)
[2020-07-07] MEDS: ASCORBIC ACID 500 MG TABLET PO SCH (09:47)
[2020-07-07] MEDS: ZINC SULFATE 220 MG ( 50 ) CAPSULE PO SCH (09:47)
[2020-07-07] MEDS: TAMSULOSIN HCL 0.4MG SR CAPSULE PO SCH (09:47)
[2020-07-07] MEDS: DOCUSATE SODIUM 250MG CAPSULE PO SCH (09:47)
[2020-07-07 16:00] VITALS: BP 178/89
[2020-07-07 20:00] VITALS: BP 169/95
[2020-07-08] MEDS: IPRATROPIUM/ALBUTEROL 0.5-3(2.5)MG/3ML NEB HHN SCH ×6 (01:03→22:15)
[2020-07-08] MEDS: OMEPRAZOLE 20MG CAPSULE EXTENDED RELEASE PO SCH ×2 (06:24→21:00)
[2020-07-08] MEDS: BLOOD SUGAR DIAGNOSTIC STRIP TEST SCH ×4 (06:25→21:00)
[2020-07-08] MEDS: INSULIN LISPRO 100 UNITS/ML SUBCUT SCH ×4 (07:50→21:00)
[2020-07-08] MEDS: TAMSULOSIN HCL 0.4MG SR CAPSULE PO SCH (09:00)
[2020-07-08] MEDS: NICOTINE 21MG PATCH TD SCH (09:00)
[2020-07-08] MEDS: ASCORBIC ACID 500 MG TABLET PO SCH (09:00)
[2020-07-08] MEDS: DOCUSATE SODIUM 250MG CAPSULE PO SCH (09:00)
[2020-07-08] MEDS: ZINC SULFATE 220 MG ( 50 ) CAPSULE PO SCH (09:00)
[2020-07-08 12:00] VITALS: BP 166/100
[2020-07-08] MEDS: IPRATROPIUM/ALBUTEROL 0.5-3(2.5)MG/3ML NEB HHN PRN (14:02)
[2020-07-08 16:00] VITALS: BP 166/92
[2020-07-08] MEDS: LORAZEPAM 2MG/ML CPJ IV PRN (16:29)
[2020-07-09] MEDS: IPRATROPIUM/ALBUTEROL 0.5-3(2.5)MG/3ML NEB HHN SCH ×7 (02:17→21:30)
[2020-07-09] MEDS: OMEPRAZOLE 20MG CAPSULE EXTENDED RELEASE PO SCH ×2 (06:28→21:00)
[2020-07-09] MEDS: BLOOD SUGAR DIAGNOSTIC STRIP TEST SCH ×4 (06:28→21:00)
[2020-07-09] MEDS: INSULIN LISPRO 100 UNITS/ML SUBCUT SCH ×4 (07:50→21:00)
[2020-07-09 08:00] VITALS: BP 171/81
[2020-07-09] MEDS: DOCUSATE SODIUM 250MG CAPSULE PO SCH (08:22)
[2020-07-09] MEDS: ASCORBIC ACID 500 MG TABLET PO SCH (08:22)
[2020-07-09] MEDS: ZINC SULFATE 220 MG ( 50 ) CAPSULE PO SCH (08:22)
[2020-07-09] MEDS: TAMSULOSIN HCL 0.4MG SR CAPSULE PO SCH (08:28)
[2020-07-09] MEDS: LORAZEPAM 2MG/ML CPJ IV PRN ×2 (08:30→16:35)
[2020-07-09] MEDS: CLONIDINE 0.1MG TABLET PO PRN (08:30)
[2020-07-09] MEDS: ONDANSETRON HCL 4MG/2ML INJ IV PRN (09:02)
[2020-07-09] MEDS: NICOTINE 21MG PATCH TD SCH (09:13)
[2020-07-09] MEDS: IPRATROPIUM/ALBUTEROL 0.5-3(2.5)MG/3ML NEB HHN PRN (09:33)
[2020-07-09 12:00] VITALS: BP 109/63
[2020-07-09 16:00] VITALS: BP 143/79
[2020-07-09] MEDS ORDERED: LORAZEPAM 2MG/ML CPJ IM PRN (16:15)
[2020-07-09 20:00] VITALS: BP 131/68
[2020-07-10] MEDS: LORAZEPAM 2MG/ML CPJ IV PRN (01:24)
[2020-07-10] MEDS: IPRATROPIUM/ALBUTEROL 0.5-3(2.5)MG/3ML NEB HHN SCH ×5 (02:38→21:28)
[2020-07-10] MEDS: BLOOD SUGAR DIAGNOSTIC STRIP TEST SCH ×4 (06:56→21:00)
[2020-07-10] MEDS: OMEPRAZOLE 20MG CAPSULE EXTENDED RELEASE PO SCH ×2 (06:56→20:42)
[2020-07-10] MEDS: INSULIN LISPRO 100 UNITS/ML SUBCUT SCH ×4 (07:40→21:00)
[2020-07-10 08:00] VITALS: BP 106/74
[2020-07-10] MEDS: NICOTINE 21MG PATCH TD SCH (09:00)
[2020-07-10] MEDS: DOCUSATE SODIUM 250MG CAPSULE PO SCH (09:49)
[2020-07-10] MEDS: ASCORBIC ACID 500 MG TABLET PO SCH (09:49)
[2020-07-10] MEDS: ZINC SULFATE 220 MG ( 50 ) CAPSULE PO SCH (09:49)
[2020-07-10] MEDS: TAMSULOSIN HCL 0.4MG SR CAPSULE PO SCH (09:50)
[2020-07-10 12:00] VITALS: BP 172/90
[2020-07-10] MEDS: THROAT LOZENGES-BENZOCAINE/MENTH/CETYLPYRD CL LOZENGES MM PRN (13:39)
[2020-07-10] MEDS: CLONIDINE 0.1MG TABLET PO PRN (13:59)
[2020-07-10 15:40] LABS: EOSINOPHILS % 6.5 % (0.0-5.0); HEMATOCRIT. 23.9 % (42.0-52.0); HEMOGLOBIN. 8.1 g/dL (14.0-18.0); LYMPHOCYTES % 21.4 % (20.0-50.0); MEAN CORPUSCULAR HEMOGLOBIN 29.4 pg (28.0-32.0); MEAN CORPUSCULAR VOLUME 86.5 fL (80.0-94.0); MEAN PLATELET VOLUME 8.3 fl (7.4-10.4); MONOCYTES % 9.3 % (2.0-8.0); NEUTROPHILS % 61.8 % (40.0-76.0); PLATELET 237 x1000/uL (130-400); RED BLOOD CELL COUNT 2.76 mill/uL (4.7-6.1); RED CELL DISTRIBUTION WIDTH 15.7 % (11.6-14.6)
[2020-07-10] MEDS: MAGNESIUM HYDROXIDE 400MG/5ML 30ML UDC PO PRN (16:10)
[2020-07-11] VITALS: BP 135/90
[2020-07-11] MEDS: IPRATROPIUM/ALBUTEROL 0.5-3(2.5)MG/3ML NEB HHN SCH ×5 (01:19→21:33)
[2020-07-11] MEDS: BLOOD SUGAR DIAGNOSTIC STRIP TEST SCH ×4 (06:23→21:00)
[2020-07-11] MEDS: OMEPRAZOLE 20MG CAPSULE EXTENDED RELEASE PO SCH ×2 (06:24→21:00)
[2020-07-11] MEDS: INSULIN LISPRO 100 UNITS/ML SUBCUT SCH ×4 (07:22→21:00)
[2020-07-11 08:00] VITALS: BP 160/81
[2020-07-11] MEDS: DOCUSATE SODIUM 250MG CAPSULE PO SCH (09:03)
[2020-07-11] MEDS: ZINC SULFATE 220 MG ( 50 ) CAPSULE PO SCH (09:03)
[2020-07-11] MEDS: ASCORBIC ACID 500 MG TABLET PO SCH (09:04)
[2020-07-11] MEDS: TAMSULOSIN HCL 0.4MG SR CAPSULE PO SCH (09:04)
[2020-07-11] MEDS: NICOTINE 21MG PATCH TD SCH (09:04)
[2020-07-11] MEDS ORDERED: LORAZEPAM 2MG/ML CPJ IV PRN (10:00)
[2020-07-11] MEDS ORDERED: HEPARIN SODIUM 1,000 UNIT/1ML VIAL IV NR (19:45)
[2020-07-11 20:00] VITALS: BP 150/52
[2020-07-12] MEDS: IPRATROPIUM/ALBUTEROL 0.5-3(2.5)MG/3ML NEB HHN SCH ×4 (00:45→20:39)
[2020-07-12] MEDS: OMEPRAZOLE 20MG CAPSULE EXTENDED RELEASE PO SCH ×2 (07:20→20:31)
[2020-07-12] MEDS: BLOOD SUGAR DIAGNOSTIC STRIP TEST SCH ×4 (07:20→20:35)
[2020-07-12] MEDS: INSULIN LISPRO 100 UNITS/ML SUBCUT SCH ×4 (07:50→20:35)
[2020-07-12] MEDS: TAMSULOSIN HCL 0.4MG SR CAPSULE PO SCH (09:00)
[2020-07-12] MEDS: ASCORBIC ACID 500 MG TABLET PO SCH (09:00)
[2020-07-12] MEDS: ZINC SULFATE 220 MG ( 50 ) CAPSULE PO SCH (09:00)
[2020-07-12] MEDS: NICOTINE 21MG PATCH TD SCH (09:00)
[2020-07-12] MEDS: DOCUSATE SODIUM 250MG CAPSULE PO SCH (09:00)
[2020-07-12 12:00] VITALS: BP 159/93
[2020-07-12] MEDS: TRAMADOL 50MG TABLET PO PRN (18:19)
[2020-07-12] MEDS: THROAT LOZENGES-BENZOCAINE/MENTH/CETYLPYRD CL LOZENGES MM PRN (19:17)
[2020-07-12 20:00] VITALS: BP 170/76
[2020-07-12] MEDS: CLONIDINE 0.1MG TABLET PO PRN (20:32)
[2020-07-13] MEDS: TRAMADOL 50MG TABLET PO PRN ×2 (01:43→21:00)
[2020-07-13] MEDS: THROAT LOZENGES-BENZOCAINE/MENTH/CETYLPYRD CL LOZENGES MM PRN ×2 (02:54→21:00)
[2020-07-13] MEDS: IPRATROPIUM/ALBUTEROL 0.5-3(2.5)MG/3ML NEB HHN SCH ×4 (03:49→21:00)
[2020-07-13] MEDS: OMEPRAZOLE 20MG CAPSULE EXTENDED RELEASE PO SCH ×2 (07:01→21:00)
[2020-07-13] MEDS: BLOOD SUGAR DIAGNOSTIC STRIP TEST SCH ×4 (07:01→21:00)
[2020-07-13] MEDS ORDERED: DIPHENHYDRAMINE 50MG/ML VIAL IV PRN (07:15)
[2020-07-13] MEDS: INSULIN LISPRO 100 UNITS/ML SUBCUT SCH ×4 (07:50→21:00)
[2020-07-13] MEDS: DOCUSATE SODIUM 250MG CAPSULE PO SCH (09:00)
[2020-07-13] MEDS: TAMSULOSIN HCL 0.4MG SR CAPSULE PO SCH (09:00)
[2020-07-13] MEDS: NICOTINE 21MG PATCH TD SCH (09:00)
[2020-07-13 12:00] VITALS: BP 145/87
[2020-07-13 20:00] VITALS: BP_SYST 145; BP_SYST 161; BP_DIAS 72; BP_DIAS 94
[2020-07-14] MEDS: IPRATROPIUM/ALBUTEROL 0.5-3(2.5)MG/3ML NEB HHN SCH ×4 (02:00→21:20)
[2020-07-14 04:00] VITALS: BP 162/86
[2020-07-14] MEDS: OMEPRAZOLE 20MG CAPSULE EXTENDED RELEASE PO SCH ×2 (06:52→22:15)
[2020-07-14] MEDS: BLOOD SUGAR DIAGNOSTIC STRIP TEST SCH ×4 (06:52→21:00)
[2020-07-14] MEDS: THROAT LOZENGES-BENZOCAINE/MENTH/CETYLPYRD CL LOZENGES MM PRN (06:54)
[2020-07-14] MEDS: INSULIN LISPRO 100 UNITS/ML SUBCUT SCH ×4 (07:50→21:00)
[2020-07-14] MEDS: NICOTINE 21MG PATCH TD SCH (09:00)
[2020-07-14] MEDS: TAMSULOSIN HCL 0.4MG SR CAPSULE PO SCH (09:00)
[2020-07-14] MEDS: DOCUSATE SODIUM 250MG CAPSULE PO SCH (09:15)
[2020-07-14 20:00] VITALS: BP 147/90
[2020-07-14] MEDS: ONDANSETRON HCL 4MG/2ML INJ IV PRN (22:43)
[2020-07-14] MEDS: TRAMADOL 50MG TABLET PO PRN (22:43)
[2020-07-15] MEDS: IPRATROPIUM/ALBUTEROL 0.5-3(2.5)MG/3ML NEB HHN SCH ×5 (03:53→20:00)
[2020-07-15 04:00] VITALS: BP 120/81
[2020-07-15 06:55] LABS: BASOPHILS % 0.2 % (0.0-2.0); EOSINOPHILS % 0.4 % (0.0-5.0); HEMATOCRIT. 24.4 % (42.0-52.0); LYMPHOCYTES % 7.1 % (20.0-50.0); MEAN CORPUSCULAR HEMOGLOBIN 28.8 pg (28.0-32.0); MEAN CORPUSCULAR VOLUME 88.1 fL (80.0-94.0); MEAN PLATELET VOLUME 8.7 fl (7.4-10.4); MONOCYTES % 7.9 % (2.0-8.0); NEUTROPHILS % 84.4 % (40.0-76.0); PLATELET 215 x1000/uL (130-400); RED BLOOD CELL COUNT 2.77 mill/uL (4.7-6.1); RED CELL DISTRIBUTION WIDTH 16.2 % (11.6-14.6)
[2020-07-15] MEDS: BLOOD SUGAR DIAGNOSTIC STRIP TEST SCH ×4 (07:31→20:52)
[2020-07-15] MEDS: INSULIN LISPRO 100 UNITS/ML SUBCUT SCH ×4 (07:50→20:54)
[2020-07-15 08:00] VITALS: BP 148/85
[2020-07-15] MEDS: OMEPRAZOLE 20MG CAPSULE EXTENDED RELEASE PO SCH ×2 (08:31→20:52)
[2020-07-15] MEDS: TRAMADOL 50MG TABLET PO PRN (08:33)
[2020-07-15] MEDS: NICOTINE 21MG PATCH TD SCH (08:33)
[2020-07-15] MEDS: DOCUSATE SODIUM 250MG CAPSULE PO SCH (08:33)
[2020-07-15] MEDS: TAMSULOSIN HCL 0.4MG SR CAPSULE PO SCH (08:36)
[2020-07-15 16:00] VITALS: BP 147/70
[2020-07-15 20:00] VITALS: BP 130/87
[2020-07-16] VITALS: BP 130/80
[2020-07-16] MEDS: TRAMADOL 50MG TABLET PO PRN ×2 (00:54→14:57)
[2020-07-16 04:00] VITALS: BP 113/78
[2020-07-16] MEDS: BLOOD SUGAR DIAGNOSTIC STRIP TEST SCH ×4 (06:41→21:39)
[2020-07-16] MEDS: OMEPRAZOLE 20MG CAPSULE EXTENDED RELEASE PO SCH ×2 (06:41→20:41)
[2020-07-16] MEDS: INSULIN LISPRO 100 UNITS/ML SUBCUT SCH ×4 (06:41→21:00)
[2020-07-16 08:00] VITALS: BP 116/73
[2020-07-16] MEDS: TAMSULOSIN HCL 0.4MG SR CAPSULE PO SCH (09:00)
[2020-07-16] MEDS: NICOTINE 21MG PATCH TD SCH (09:00)
[2020-07-16] MEDS: DOCUSATE SODIUM 250MG CAPSULE PO SCH (09:00)
[2020-07-16 12:00] VITALS: BP 137/81
[2020-07-17] VITALS: BP 149/71
[2020-07-17] MEDS: TRAMADOL 50MG TABLET PO PRN ×2 (01:17→09:45)
[2020-07-17 06:32] LABS: CLARITY URINE CLEAR (CLEAR); COLOR URINE YELLOW (YELLOW); KETONES URINE NEGATIVE (NEGATIVE); LEUKOCYTE ESTERASE URINE 2+ (NEGATIVE); NITRITE URINE NEGATIVE (NEGATIVE); OCCULT BLOOD URINE 2+ (NEGATIVE); PH URINE >=9.0 (4.5-8.0); PROTEIN URINE 3+ (NEGATIVE); SPECIFIC GRAVITY URINE 1.014 (1.005-1.030); UROBILINOGEN URINE 0.2 E.U./dL (0.2-1.0)
[2020-07-17] MEDS: BLOOD SUGAR DIAGNOSTIC STRIP TEST SCH ×4 (06:54→21:18)
[2020-07-17] MEDS: OMEPRAZOLE 20MG CAPSULE EXTENDED RELEASE PO SCH ×2 (07:20→21:18)
[2020-07-17] MEDS: INSULIN LISPRO 100 UNITS/ML SUBCUT SCH ×4 (07:50→21:00)
[2020-07-17 08:00] VITALS: BP 147/75
[2020-07-17] MEDS: NICOTINE 21MG PATCH TD SCH (09:00)
[2020-07-17] MEDS: DOCUSATE SODIUM 250MG CAPSULE PO SCH (09:35)
[2020-07-17] MEDS: MAGNESIUM HYDROXIDE 400MG/5ML 30ML UDC PO PRN (09:36)
[2020-07-17] MEDS: TAMSULOSIN HCL 0.4MG SR CAPSULE PO SCH (09:41)
[2020-07-17] MEDS: SORBITOL 70% SOLN 30ML PO PRN (09:46)
[2020-07-18] MEDS: OMEPRAZOLE 20MG CAPSULE EXTENDED RELEASE PO SCH ×2 (06:20→20:54)
[2020-07-18] MEDS: BLOOD SUGAR DIAGNOSTIC STRIP TEST SCH ×4 (06:21→20:57)
[2020-07-18] MEDS: INSULIN LISPRO 100 UNITS/ML SUBCUT SCH ×4 (07:50→20:57)
[2020-07-18] MEDS: NICOTINE 21MG PATCH TD SCH (09:00)
[2020-07-18] MEDS: DOCUSATE SODIUM 250MG CAPSULE PO SCH (09:00)
[2020-07-18] MEDS: TAMSULOSIN HCL 0.4MG SR CAPSULE PO SCH (09:00)
[2020-07-18 12:00] VITALS: BP 112/69
[2020-07-18] MEDS ORDERED: HEPARIN SODIUM 1,000 UNIT/1ML VIAL IV SCH (12:30)
[2020-07-18] MEDS: THROAT LOZENGES-BENZOCAINE/MENTH/CETYLPYRD CL LOZENGES MM PRN (21:12)
[2020-07-19] MEDS: OMEPRAZOLE 20MG CAPSULE EXTENDED RELEASE PO SCH ×2 (07:05→20:54)
[2020-07-19] MEDS: BLOOD SUGAR DIAGNOSTIC STRIP TEST SCH ×4 (07:05→21:00)
[2020-07-19] MEDS: INSULIN LISPRO 100 UNITS/ML SUBCUT SCH ×4 (07:50→21:00)
[2020-07-19] MEDS: DOCUSATE SODIUM 250MG CAPSULE PO SCH (08:37)
[2020-07-19] MEDS: NICOTINE 21MG PATCH TD SCH (08:37)
[2020-07-19] MEDS: TAMSULOSIN HCL 0.4MG SR CAPSULE PO SCH (08:38)
[2020-07-19] MEDS: KETOROLAC 15MG/ML VIAL IV PRN ×3 (10:28→23:22)
[2020-07-19 20:00] VITALS: BP 123/67
[2020-07-19] MEDS: LINEZOLID 600 MG PREMIX 300 ML IV SCH (20:55)
[2020-07-20] MEDS: OMEPRAZOLE 20MG CAPSULE EXTENDED RELEASE PO SCH ×2 (06:25→20:31)
[2020-07-20] MEDS: KETOROLAC 15MG/ML VIAL IV PRN (06:30)
[2020-07-20] MEDS: BLOOD SUGAR DIAGNOSTIC STRIP TEST SCH ×3 (06:35→20:26)
[2020-07-20] MEDS: INSULIN LISPRO 100 UNITS/ML SUBCUT SCH ×3 (08:00→21:00)
[2020-07-20] MEDS: DOCUSATE SODIUM 250MG CAPSULE PO SCH (09:00)
[2020-07-20] MEDS: NICOTINE 21MG PATCH TD SCH (09:00)
[2020-07-20] MEDS: TAMSULOSIN HCL 0.4MG SR CAPSULE PO SCH (09:00)
[2020-07-20] MEDS: LINEZOLID 600 MG PREMIX 300 ML IV SCH ×2 (09:38→20:25)
[2020-07-20] MEDS ORDERED: IPRATROPIUM/ALBUTEROL 0.5-3(2.5)MG/3ML NEB HHN PRN (11:15)
[2020-07-20 12:00] VITALS: BP 148/86
[2020-07-20] MEDS: IPRATROPIUM/ALBUTEROL 0.5-3(2.5)MG/3ML NEB HHN SCH ×2 (13:00→21:05)
[2020-07-20] MEDS ORDERED: HEPARIN SODIUM 1,000 UNIT/1ML VIAL IV NR (15:15)
[2020-07-20 15:54] LABS: BASOPHILS % 0.4 % (0.0-2.0); EOSINOPHILS % 5.6 % (0.0-5.0); LYMPHOCYTES % 10.3 % (20.0-50.0); MEAN CORPUSCULAR HEMOGLOBIN 29.3 pg (28.0-32.0); MEAN CORPUSCULAR VOLUME 87.5 fL (80.0-94.0); MEAN PLATELET VOLUME 8.7 fl (7.4-10.4); MONOCYTES % 7.2 % (2.0-8.0); NEUTROPHILS % 76.5 % (40.0-76.0); PLATELET 249 x1000/uL (130-400); RED BLOOD CELL COUNT 2.29 mill/uL (4.7-6.1); RED CELL DISTRIBUTION WIDTH 16.5 % (11.6-14.6)
[2020-07-20 16:00] VITALS: BP 134/78
[2020-07-20 16:07] LABS: HEMATOCRIT. 20.1 % (42.0-52.0); HEMOGLOBIN. 6.7 g/dL (14.0-18.0)
[2020-07-20] MEDS: MAGNESIUM HYDROXIDE 400MG/5ML 30ML UDC PO PRN (20:25)
[2020-07-20 23:46] VITALS: BP 137/75
[2020-07-21 00:07] VITALS: BP_SYST 137; BP_SYST 147; BP_DIAS 69; BP_DIAS 77
[2020-07-21 01:54] VITALS: BP 131/84
[2020-07-21] MEDS: KETOROLAC 15MG/ML VIAL IV PRN ×4 (03:08→21:08)
[2020-07-21] MEDS: OMEPRAZOLE 20MG CAPSULE EXTENDED RELEASE PO SCH ×2 (06:31→21:07)
[2020-07-21 08:00] VITALS: BP 144/78
[2020-07-21] MEDS: NICOTINE 21MG PATCH TD SCH (09:00)
[2020-07-21] MEDS: IPRATROPIUM/ALBUTEROL 0.5-3(2.5)MG/3ML NEB HHN SCH ×4 (09:54→21:12)
[2020-07-21] MEDS: LINEZOLID 600 MG PREMIX 300 ML IV SCH ×2 (09:55→21:07)
[2020-07-21] MEDS: DOCUSATE SODIUM 250MG CAPSULE PO SCH (09:55)
[2020-07-21] MEDS: TAMSULOSIN HCL 0.4MG SR CAPSULE PO SCH (09:55)
[2020-07-21 16:00] VITALS: BP 132/80
[2020-07-21 16:11] LABS: HEMATOCRIT 24.4 % (42.0-52.0); HEMOGLOBIN 8.3 g/dL (14.0-18.0)
[2020-07-21] MEDS: THROAT LOZENGES-BENZOCAINE/MENTH/CETYLPYRD CL LOZENGES MM PRN (19:47)
[2020-07-21 20:00] VITALS: BP 168/82
[2020-07-22] VITALS (10 sets, daily range): BP systolic 152–183; BP diastolic 86–95
[2020-07-22] MEDS: IPRATROPIUM/ALBUTEROL 0.5-3(2.5)MG/3ML NEB HHN SCH ×4 (02:50→20:59)
[2020-07-22] MEDS: OMEPRAZOLE 20MG CAPSULE EXTENDED RELEASE PO SCH ×2 (07:02→20:36)
[2020-07-22] MEDS: DOCUSATE SODIUM 250MG CAPSULE PO SCH (08:23)
[2020-07-22] MEDS: KETOROLAC 15MG/ML VIAL IV PRN ×3 (08:24→20:51)
[2020-07-22] MEDS: LINEZOLID 600 MG PREMIX 300 ML IV SCH (08:25)
[2020-07-22] MEDS: NICOTINE 21MG PATCH TD SCH ×2 (09:00→10:06)
[2020-07-22] MEDS: MAGNESIUM HYDROXIDE 400MG/5ML 30ML UDC PO PRN (10:05)
[2020-07-22] MEDS: SORBITOL 70% SOLN 30ML PO PRN ×2 (10:05→20:39)
[2020-07-22] MEDS: TAMSULOSIN HCL 0.4MG SR CAPSULE PO SCH (10:06)
[2020-07-22] MEDS: CLONIDINE 0.1MG TABLET PO PRN (14:25)
[2020-07-22 17:43] LABS: BASOPHILS % 0.5 % (0.0-2.0); EOSINOPHILS % 7.9 % (0.0-5.0); HEMATOCRIT. 26.4 % (42.0-52.0); HEMOGLOBIN. 8.9 g/dL (14.0-18.0); LYMPHOCYTES % 14.2 % (20.0-50.0); MEAN CORPUSCULAR HEMOGLOBIN 29.3 pg (28.0-32.0); MEAN CORPUSCULAR VOLUME 86.8 fL (80.0-94.0); MEAN PLATELET VOLUME 8.2 fl (7.4-10.4); MONOCYTES % 7.2 % (2.0-8.0); NEUTROPHILS % 70.2 % (40.0-76.0); PLATELET 297 x1000/uL (130-400); RED BLOOD CELL COUNT 3.04 mill/uL (4.7-6.1)
[2020-07-22] MEDS: THROAT LOZENGES-BENZOCAINE/MENTH/CETYLPYRD CL LOZENGES MM PRN (20:36)
[2020-07-22] MEDS: LINEZOLID 600MG TABLET PO SCH (20:36)
[2020-07-23] VITALS: BP 131/81
[2020-07-23] MEDS: IPRATROPIUM/ALBUTEROL 0.5-3(2.5)MG/3ML NEB HHN SCH ×3 (03:07→21:31)
[2020-07-23 04:01] LABS: BASOPHILS % 0.5 % (0.0-2.0); EOSINOPHILS % 8.5 % (0.0-5.0); HEMATOCRIT. 26.9 % (42.0-52.0); HEMOGLOBIN. 9.2 g/dL (14.0-18.0); LYMPHOCYTES % 17.9 % (20.0-50.0); MEAN CORPUSCULAR HEMOGLOBIN 29.8 pg (28.0-32.0); MEAN CORPUSCULAR VOLUME 87.5 fL (80.0-94.0); MEAN PLATELET VOLUME 8.1 fl (7.4-10.4); MONOCYTES % 8.2 % (2.0-8.0); NEUTROPHILS % 64.9 % (40.0-76.0); PLATELET 287 x1000/uL (130-400); RED BLOOD CELL COUNT 3.07 mill/uL (4.7-6.1); RED CELL DISTRIBUTION WIDTH 15.5 % (11.6-14.6)
[2020-07-23] MEDS: OMEPRAZOLE 20MG CAPSULE EXTENDED RELEASE PO SCH ×2 (06:32→20:15)
[2020-07-23] MEDS: DOCUSATE SODIUM 250MG CAPSULE PO SCH (08:42)
[2020-07-23] MEDS: LINEZOLID 600MG TABLET PO SCH ×2 (08:42→20:15)
[2020-07-23] MEDS: NICOTINE 21MG PATCH TD SCH (08:43)
[2020-07-23] MEDS: TAMSULOSIN HCL 0.4MG SR CAPSULE PO SCH (08:43)
[2020-07-23] MEDS: KETOROLAC 15MG/ML VIAL IV PRN ×3 (08:48→21:45)
[2020-07-23 12:00] VITALS: BP 167/98
[2020-07-23] MEDS: CLONIDINE 0.1MG TABLET PO PRN (12:34)
[2020-07-23 16:00] VITALS: BP 136/85
[2020-07-23 20:00] VITALS: BP 141/88
[2020-07-24] VITALS: BP 144/88
[2020-07-24] MEDS: SORBITOL 70% SOLN 30ML PO PRN (01:12)
[2020-07-24] MEDS: IPRATROPIUM/ALBUTEROL 0.5-3(2.5)MG/3ML NEB HHN SCH ×3 (01:47→14:03)
[2020-07-24] MEDS: MAGNESIUM HYDROXIDE 400MG/5ML 30ML UDC PO PRN (02:11)
[2020-07-24] MEDS: KETOROLAC 15MG/ML VIAL IV PRN (05:55)
[2020-07-24] MEDS: OMEPRAZOLE 20MG CAPSULE EXTENDED RELEASE PO SCH (06:31)
[2020-07-24] MEDS: DOCUSATE SODIUM 250MG CAPSULE PO SCH (09:40)
[2020-07-24] MEDS: LINEZOLID 600MG TABLET PO SCH (09:40)
[2020-07-24] MEDS: NICOTINE 21MG PATCH TD SCH (09:40)
[2020-07-24] MEDS: TAMSULOSIN HCL 0.4MG SR CAPSULE PO SCH (09:40)
[2020-07-24 12:01] VITALS: BP 150/92
[2020-07-24] MEDS ORDERED: KETOROLAC 15MG/ML VIAL IV PRN (13:15)
[2020-07-24 16:00] VITALS: BP 151/88
[2020-07-24 17:47] VITALS: BP 157/88
== END 2020-07-24 19:22 | DRG 870 ==
LOC: ER 16:21 → 7WST 20:43 → EDBD 20:43 → EDBEDREQTM 21:05 → EDBEDREQ 21:05 → ENRESERV 21:18 → 5WST 06-09 14:02 → MICUNO 06-16 11:13 → CVICU 06-17 18:30 → 3WST 06-22 16:59 → 6EST 06-28 20:45
PROVIDERS: ADMIT Hospitalist; ATTEND Hospitalist
PROC: 02H633Z Insertion of Infusion Device into Right Atrium, Percutaneous Approach (ICD-10-PCS; 2020-06-13)
PROC: B548ZZA Ultrasonography of Superior Vena Cava, Guidance (ICD-10-PCS; 2020-06-13)
PROC: 05HY33Z Insertion of Infusion Device into Upper Vein, Percutaneous Approach (ICD-10-PCS; 2020-06-16)
PROC: B54MZZA Ultrasonography of Right Upper Extremity Veins, Guidance (ICD-10-PCS; 2020-06-16)
PROC: 5A1955Z Respiratory Ventilation, Greater than 96 Consecutive Hours (ICD-10-PCS; principal; 2020-06-17)
PROC: 0BH18EZ Insertion of Endotracheal Airway into Trachea, Via Natural or Artificial Opening Endoscopic (ICD-10-PCS; 2020-06-17)
PROC: 30233N1 Transfusion of Nonautologous Red Blood Cells into Peripheral Vein, Percutaneous Approach (ICD-10-PCS; 2020-06-17)
PROC: 5A1D70Z Performance of Urinary Filtration, Intermittent, Less than 6 Hours Per Day (ICD-10-PCS; 2020-06-18)
PROC: 5A1D70Z Performance of Urinary Filtration, Intermittent, Less than 6 Hours Per Day (ICD-10-PCS; 2020-06-20)
PROC: 5A1D70Z Performance of Urinary Filtration, Intermittent, Less than 6 Hours Per Day (ICD-10-PCS; 2020-06-22)
PROC: 5A1D70Z Performance of Urinary Filtration, Intermittent, Less than 6 Hours Per Day (ICD-10-PCS; 2020-06-24)
PROC: 5A1D70Z Performance of Urinary Filtration, Intermittent, Less than 6 Hours Per Day (ICD-10-PCS; 2020-06-26)
PROC: 5A1D70Z Performance of Urinary Filtration, Intermittent, Less than 6 Hours Per Day (ICD-10-PCS; 2020-06-29)
PROC: 5A1D70Z Performance of Urinary Filtration, Intermittent, Less than 6 Hours Per Day (ICD-10-PCS; 2020-07-01)
PROC: 5A1D70Z Performance of Urinary Filtration, Intermittent, Less than 6 Hours Per Day (ICD-10-PCS; 2020-07-04)
PROC: 5A1D70Z Performance of Urinary Filtration, Intermittent, Less than 6 Hours Per Day (ICD-10-PCS; 2020-07-05)
PROC: 5A1D70Z Performance of Urinary Filtration, Intermittent, Less than 6 Hours Per Day (ICD-10-PCS; 2020-07-07)
PROC: 5A1D70Z Performance of Urinary Filtration, Intermittent, Less than 6 Hours Per Day (ICD-10-PCS; 2020-07-10)
PROC: 5A1D70Z Performance of Urinary Filtration, Intermittent, Less than 6 Hours Per Day (ICD-10-PCS; 2020-07-11)
PROC: 5A1D70Z Performance of Urinary Filtration, Intermittent, Less than 6 Hours Per Day (ICD-10-PCS; 2020-07-13)
PROC: 5A1D70Z Performance of Urinary Filtration, Intermittent, Less than 6 Hours Per Day (ICD-10-PCS; 2020-07-15)
PROC: 5A1D70Z Performance of Urinary Filtration, Intermittent, Less than 6 Hours Per Day (ICD-10-PCS; 2020-07-17)
PROC: 5A1D70Z Performance of Urinary Filtration, Intermittent, Less than 6 Hours Per Day (ICD-10-PCS; 2020-07-20)
PROC: 5A1D70Z Performance of Urinary Filtration, Intermittent, Less than 6 Hours Per Day (ICD-10-PCS; 2020-07-22)
PROC: 5A1D70Z Performance of Urinary Filtration, Intermittent, Less than 6 Hours Per Day (ICD-10-PCS; 2020-07-24)
DX: A41.59 Other Gram-negative sepsis (principal); I50.33 Acute on chronic diastolic (congestive) heart failure; G93.41 Metabolic encephalopathy; N18.6 End stage renal disease; J96.00 Acute respiratory failure, unspecified whether with hypoxia or hypercapnia; I46.9 Cardiac arrest, cause unspecified; R65.21 Severe sepsis with septic shock; K72.00 Acute and subacute hepatic failure without coma; R57.8 Other shock; I13.2 Hypertensive heart and chronic kidney disease with heart failure and with stage 5 chronic kidney disease, or end stage renal disease; E87.1 Hypo-osmolality and hyponatremia; N17.9 Acute kidney failure, unspecified; N39.0 Urinary tract infection, site not specified; K59.39 Other megacolon; E87.2 Acidosis; J98.11 Atelectasis; Z16.21 Resistance to vancomycin; E11.22 Type 2 diabetes mellitus with diabetic chronic kidney disease; E87.5 Hyperkalemia; Z20.828 Contact with and (suspected) exposure to other viral communicable diseases; J44.9 Chronic obstructive pulmonary disease, unspecified; I25.10 Atherosclerotic heart disease of native coronary artery without angina pectoris; B96.1 Klebsiella pneumoniae [K. pneumoniae] as the cause of diseases classified elsewhere; D50.0 Iron deficiency anemia secondary to blood loss (chronic); B95.2 Enterococcus as the cause of diseases classified elsewhere; D63.8 Anemia in other chronic diseases classified elsewhere; E11.649 Type 2 diabetes mellitus with hypoglycemia without coma; E11.65 Type 2 diabetes mellitus with hyperglycemia; E83.39 Other disorders of phosphorus metabolism; K74.60 Unspecified cirrhosis of liver; Z99.2 Dependence on renal dialysis; Z87.440 Personal history of urinary (tract) infections; Z79.899 Other long term (current) drug therapy; S90.31XA Contusion of right foot, initial encounter; S91.111A Laceration without foreign body of right great toe without damage to nail, initial encounter
CPT/HCPCS: 36415; 36600; 71045; 71250; 74176; 76700; 76937; 80048; 80053; 80076; 80170; 80202; 81003; 82140; 82270; 82375; 82805; 82962; 83036; 83605; 83735; 84100; 84145; 84450; 84460; 84478; 84484; 85014; 85018; 85025; 86705; 86706; 86709; 86803; 86850; 86900; 86920; 87070; 87077; 87186; 87340; 87426; 87635; 92610; 93005; 93308; 93970; 94002; 94003; 94640; 97162; 97164; 97166; 97168; 97530; 99291; A6261; C1725; C1893; C9113; J0461; J0696; J0885; J1200; J1580; J1644; J1650; J1815; J1885; J2020; J2060; J2405; J2543; J2704; J3370; J3490; J7040; J7050; J7060; J7070; J7608; P9016; A4315

== ENCOUNTER 2020-08-30 14:24 | Inpatient (IN) | payer OTHER, MEDICARE ==
[~2020-08-30] VITALS: Ht 167.6 cm; Wt 72.6 kg
[2020-08-30] MEDS ORDERED: ONDANSETRON HCL 4MG/2ML INJ IV STA (17:17)
[2020-08-30] MEDS ORDERED: MORPHINE SULFATE 4 MG/ML CPJ (NOT FOR IM USE) IV STA (17:17)
[2020-08-30] MEDS ORDERED: SODIUM CHLORIDE 0.9% 1,000 ML IV ONE (17:30)
[2020-08-30 20:47] LABS: BASOPHILS % 0.7 % (0.0-2.0); EOSINOPHILS % 2.2 % (0.0-5.0); HEMATOCRIT. 32.9 % (42.0-52.0); HEMOGLOBIN. 11.1 g/dL (14.0-18.0); LYMPHOCYTES % 21.7 % (20.0-50.0); MEAN CORPUSCULAR HEMOGLOBIN 30.2 pg (28.0-32.0); MEAN PLATELET VOLUME 7.5 fl (7.4-10.4); MONOCYTES % 9.9 % (2.0-8.0); NEUTROPHILS % 65.5 % (40.0-76.0); PLATELET 329 x1000/uL (130-400); RED BLOOD CELL COUNT 3.69 mill/uL (4.7-6.1); RED CELL DISTRIBUTION WIDTH 19.5 % (11.6-14.6)
[2020-08-30 20:53] LABS: CHLORIDE 91 mEq/L (98-107)
[2020-08-30 20:55] LABS: PARTIAL THROMBOPLASTIN TIME 34.2 sec (23.4-31.0); PROTHROMBIN TIME 10.9 sec (9.6-11.0)
[2020-08-30 20:56] LABS: ETHANOL BLOOD < 10 mg/dL
[2020-08-30] MEDS ORDERED: ONDANSETRON HCL 4MG/2ML INJ IV NR (21:45)
[2020-08-30] MEDS ORDERED: MORPHINE SULFATE 4 MG/ML CPJ (NOT FOR IM USE) IV NR (21:45)
[2020-08-30] MEDS ORDERED: PIPERACILLIN/TAZ 3.375G PREMIX 50 ML IV ONE (22:00)
[2020-08-30] MEDS ORDERED: ACETAMINOPHEN 325MG TABLET PO PRN (22:45)
[2020-08-30] MEDS ORDERED: GUAIFENESIN 200MG/10ML SUGAR FREE UDC PO PRN (22:45)
[2020-08-30] MEDS ORDERED: IPRATROPIUM/ALBUTEROL 0.5-3(2.5)MG/3ML NEB NEB PRN (22:45)
[2020-08-30] MEDS ORDERED: DOCUSATE SODIUM 100MG CAPSULE PO PRN (22:45)
[2020-08-30] MEDS ORDERED: ONDANSETRON HCL 4MG/2ML INJ IV PRN (22:45)
[2020-08-30 23:03] LABS: CLARITY URINE TURBID (CLEAR); COLOR URINE YELLOW (YELLOW); KETONES URINE NEGATIVE (NEGATIVE); LEUKOCYTE ESTERASE URINE 3+ (NEGATIVE); NITRITE URINE NEGATIVE (NEGATIVE); OCCULT BLOOD URINE 2+ (NEGATIVE); PH URINE 7.5 (4.5-8.0); PROTEIN URINE 3+ (NEGATIVE); SPECIFIC GRAVITY URINE 1.014 (1.005-1.030); UROBILINOGEN URINE 0.2 E.U./dL (0.2-1.0)
[2020-08-30 23:21] LABS: *AMPHETAMINES SCREEN URINE NEGATIVE (NEGATIVE); *BARBITURATES SCREEN URINE NEGATIVE (NEGATIVE); *BENZODIAZEPINES SCREEN URINE NEGATIVE (NEGATIVE)
[2020-08-30 23:23] LABS: *COCAINE SCREEN URINE NEGATIVE (NEGATIVE); CANNABINOID URINE SCREEN NEGATIVE (NEGATIVE); METHADONE URINE SCREEN NEGATIVE (NEGATIVE); OPIATES URINE SCREEN NEGATIVE (NEGATIVE); PHENCYCLIDINE URINE SCREEN NEGATIVE (NEGATIVE)
[2020-08-31] VITALS (11 sets, daily range): BP systolic 148–161; BP diastolic 61–110
[2020-08-31] MEDS: HYDROCODONE/ACETAMINOPHEN 5/325MG TABLET PO PRN ×3 (02:09→20:02)
[2020-08-31 04:41] LABS: BASOPHILS % 0.9 % (0.0-2.0); EOSINOPHILS % 2.9 % (0.0-5.0); HEMATOCRIT. 31.8 % (42.0-52.0); HEMOGLOBIN. 10.8 g/dL (14.0-18.0); LYMPHOCYTES % 20.7 % (20.0-50.0); MEAN CORPUSCULAR HEMOGLOBIN 30.1 pg (28.0-32.0); MEAN CORPUSCULAR VOLUME 88.4 fL (80.0-94.0); MONOCYTES % 9.1 % (2.0-8.0); NEUTROPHILS % 66.4 % (40.0-76.0); PLATELET 318 x1000/uL (130-400); RED CELL DISTRIBUTION WIDTH 19.5 % (11.6-14.6)
[2020-08-31] MEDS ORDERED: CEFTRIAXONE 1 G PREMIX 50 ML IV SCH (10:00)
[2020-08-31] MEDS ORDERED: CEFTRIAXONE 1,000 MG in DEXTROSE 5% WATER 50 ML IV SCH (12:00)
[2020-08-31] MEDS ORDERED: DEXTROSE 50% WATER 50ML SYRINGE IV PRN (22:30)
[2020-08-31] MEDS: INSULIN LISPRO 100 UNITS/ML SUBCUT SCH (22:30)
[2020-08-31] MEDS: BLOOD SUGAR DIAGNOSTIC STRIP TEST SCH (22:30)
[2020-08-31] MEDS: CLONIDINE 0.1MG TABLET PO PRN (23:16)
[2020-09-01] VITALS (13 sets, daily range): BP systolic 137–193; BP diastolic 81–116
[2020-09-01] MEDS: BLOOD SUGAR DIAGNOSTIC STRIP TEST SCH ×5 (06:09→21:20)
[2020-09-01] MEDS: INSULIN LISPRO 100 UNITS/ML SUBCUT SCH ×4 (07:20→21:00)
[2020-09-01] MEDS ORDERED: DIPHENHYDRAMINE 50MG/ML VIAL IV NR (09:30)
[2020-09-01 10:28] LABS: T4 FREE 0.96 ng/dL (0.76-1.46)
[2020-09-01] MEDS ORDERED: VANCOMYCIN 1,250 MG in DEXT 5% WATER 250 ML IV SCH ×4 (11:00)
[2020-09-01] MEDS: PIPERACILLIN/TAZOBACTAM 2.25 G in DEXTROSE 5% WATER 50 ML IV SCH ×2 (11:06→18:19)
[2020-09-01] MEDS: ASPIRIN 81MG TABLET PO SCH (11:06)
[2020-09-01] MEDS ORDERED: PIPERACILLIN/TAZOBACTAM 2.25 G in DEXTROSE 5% WATER 50 ML IV SCH (14:00)
[2020-09-01] MEDS: HYDROCODONE/ACETAMINOPHEN 5/325MG TABLET PO PRN (14:24)
[2020-09-01] MEDS: CLONIDINE 0.1MG TABLET PO PRN (15:19)
[2020-09-01] MEDS: HYDRALAZINE 20MG/ML VIAL IV PRN (17:06)
[2020-09-01 17:51] LABS: CREATINE KINASE 106 IU/L (39-308)
[2020-09-01 17:52] LABS: CREATINE KINASE MB FRACTION 3.8 ng/mL (0.5-3.6)
[2020-09-02] VITALS (9 sets, daily range): BP systolic 151–190; BP diastolic 69–117
[2020-09-02] MEDS: CLONIDINE 0.1MG TABLET PO PRN ×2 (00:35→11:44)
[2020-09-02] MEDS: PIPERACILLIN/TAZOBACTAM 2.25 G in DEXTROSE 5% WATER 50 ML IV SCH ×3 (02:12→17:31)
[2020-09-02] MEDS: HYDRALAZINE 20MG/ML VIAL IV PRN ×2 (03:39→21:05)
[2020-09-02] MEDS: BLOOD SUGAR DIAGNOSTIC STRIP TEST SCH ×4 (06:50→21:10)
[2020-09-02] MEDS: INSULIN LISPRO 100 UNITS/ML SUBCUT SCH ×4 (07:20→21:00)
[2020-09-02 07:39] LABS: BASOPHILS % 0.5 % (0.0-2.0); EOSINOPHILS % 2.3 % (0.0-5.0); HEMATOCRIT. 31.5 % (42.0-52.0); HEMOGLOBIN. 10.6 g/dL (14.0-18.0); LYMPHOCYTES % 12.7 % (20.0-50.0); MEAN CORPUSCULAR HEMOGLOBIN 30.4 pg (28.0-32.0); MEAN CORPUSCULAR VOLUME 90.4 fL (80.0-94.0); NEUTROPHILS % 76.5 % (40.0-76.0); RED BLOOD CELL COUNT 3.48 mill/uL (4.7-6.1); RED CELL DISTRIBUTION WIDTH 19.5 % (11.6-14.6)
[2020-09-02 07:43] LABS: CHLORIDE 100 mEq/L (98-107)
[2020-09-02 07:51] LABS: CREATINE KINASE 102 IU/L (39-308); CREATINE KINASE MB FRACTION 4.3 ng/mL (0.5-3.6)
[2020-09-02] MEDS: ASPIRIN 81MG TABLET PO SCH (08:49)
[2020-09-02] MEDS: HYDROCODONE/ACETAMINOPHEN 5/325MG TABLET PO PRN (08:51)
[2020-09-02 11:01] LABS: MEAN PLATELET VOLUME 7.8 fl (7.4-10.4); PLATELET 256 x1000/uL (130-400)
[2020-09-03] VITALS (10 sets, daily range): BP systolic 105–180; BP diastolic 68–117
[2020-09-03] MEDS: BLOOD SUGAR DIAGNOSTIC STRIP TEST SCH ×4 (06:50→21:00)
[2020-09-03] MEDS: INSULIN LISPRO 100 UNITS/ML SUBCUT SCH ×4 (07:20→21:00)
[2020-09-03] MEDS: ASPIRIN 81MG TABLET PO SCH (08:27)
[2020-09-03] MEDS ORDERED: SULFAMETHOXAZOLE/TRIMETHOPRIM 800/160MG TABLET PO SCH (09:00)
[2020-09-03] MEDS: HYDRALAZINE 20MG/ML VIAL IV PRN (12:34)
[2020-09-03] MEDS: CLONIDINE 0.1MG TABLET PO PRN (13:57)
[2020-09-03] MEDS ORDERED: HEPARIN SODIUM 1,000 UNIT/1ML VIAL IV NR (14:45)
[2020-09-03 17:10] LABS: BASOPHILS % 0.7 % (0.0-2.0); EOSINOPHILS % 3.3 % (0.0-5.0); HEMATOCRIT. 29.9 % (42.0-52.0); HEMOGLOBIN. 10.1 g/dL (14.0-18.0); LYMPHOCYTES % 15.4 % (20.0-50.0); MEAN CORPUSCULAR VOLUME 89.3 fL (80.0-94.0); MEAN PLATELET VOLUME 7.6 fl (7.4-10.4); MONOCYTES % 6.7 % (2.0-8.0); NEUTROPHILS % 73.9 % (40.0-76.0); PLATELET 287 x1000/uL (130-400); RED BLOOD CELL COUNT 3.35 mill/uL (4.7-6.1); RED CELL DISTRIBUTION WIDTH 19.6 % (11.6-14.6)
[2020-09-04] MEDS ORDERED: SULFAMETHOXAZOLE/TRIMETHOPRIM 400/80MG TAB PO SCH (09:00)
== END 2020-09-03 22:36 | DRG 205 ==
LOC: ER 14:24 → MICUSO 21:24 → 3WST 08-31 09:09
PROVIDERS: ADMIT Internal Medicine; ATTEND Internal Medicine
PROC: 5A1D70Z Performance of Urinary Filtration, Intermittent, Less than 6 Hours Per Day (ICD-10-PCS; principal; 2020-08-31)
PROC: 5A1D70Z Performance of Urinary Filtration, Intermittent, Less than 6 Hours Per Day (ICD-10-PCS; 2020-09-02)
DX: M94.0 Chondrocostal junction syndrome [Tietze] (principal); N18.6 End stage renal disease; N39.0 Urinary tract infection, site not specified; I12.0 Hypertensive chronic kidney disease with stage 5 chronic kidney disease or end stage renal disease; E11.22 Type 2 diabetes mellitus with diabetic chronic kidney disease; D64.9 Anemia, unspecified; Z20.828 Contact with and (suspected) exposure to other viral communicable diseases; Z99.2 Dependence on renal dialysis; Z86.74 Personal history of sudden cardiac arrest; Z86.73 Personal history of transient ischemic attack (TIA), and cerebral infarction without residual deficits; Z79.899 Other long term (current) drug therapy; R33.9 Retention of urine, unspecified; B96.1 Klebsiella pneumoniae [K. pneumoniae] as the cause of diseases classified elsewhere; B96.89 Other specified bacterial agents as the cause of diseases classified elsewhere; R82.71 Bacteriuria
CPT/HCPCS: 36415; 71045; 72100; 80048; 80053; 80061; 80305; 80320; 81003; 82550; 82553; 82962; 83036; 83880; 84439; 84443; 84484; 85025; 85379; 87077; 87186; 87426; 92610; 93005; 93306; 97162; 97166; 99285; J0360; J0696; J1200; J1644; J2270; J2405; J2543; J3370; J7030; J7060; A4315; G0480

== ENCOUNTER 2020-09-07 12:22 | Inpatient (IN) | payer OTHER, MEDICARE, MEDICAID ==
[~2020-09-07] VITALS: Ht 175.3 cm; Wt 71.2 kg
[2020-09-07] MEDS ORDERED: MORPHINE SULFATE 4 MG/ML CPJ (NOT FOR IM USE) IV ONE (14:30)
[2020-09-07] MEDS ORDERED: GENTAMICIN SULFATE 160 MG in SODIUM CHLORIDE 0.9% 100 ML IV SCH (15:00)
[2020-09-07 15:04] LABS: BASOPHILS % 0.9 % (0.0-2.0); EOSINOPHILS % 0.2 % (0.0-5.0); HEMATOCRIT. 33.4 % (42.0-52.0); HEMOGLOBIN. 11.2 g/dL (14.0-18.0); LYMPHOCYTES % 17.2 % (20.0-50.0); MEAN CORPUSCULAR HEMOGLOBIN 30.2 pg (28.0-32.0); MEAN CORPUSCULAR VOLUME 89.8 fL (80.0-94.0); MEAN PLATELET VOLUME 7.9 fl (7.4-10.4); MONOCYTES % 13.7 % (2.0-8.0); PLATELET 241 x1000/uL (130-400); RED BLOOD CELL COUNT 3.72 mill/uL (4.7-6.1); RED CELL DISTRIBUTION WIDTH 19.4 % (11.6-14.6)
[2020-09-07 15:12] LABS: CHLORIDE 98 mEq/L (98-107)
[2020-09-07 15:24] LABS: INR 1.1; PROTHROMBIN TIME 11.1 sec (9.6-11.0)
[2020-09-07] MEDS ORDERED: IPRATROPIUM/ALBUTEROL 0.5-3(2.5)MG/3ML NEB HHN PRN (15:30)
[2020-09-07] MEDS ORDERED: ONDANSETRON HCL 4MG/2ML INJ IV PRN (15:30)
[2020-09-07] MEDS ORDERED: PIPERACILLIN/TAZOBACTAM 3.375GM/50ML PREMIX IV ONE (16:15)
[2020-09-07] MEDS ORDERED: PIPERACILLIN/TAZ 3.375G PREMIX 50 ML IV NR (17:00)
[2020-09-07] MEDS: ACETAMINOPHEN 325MG TABLET PO PRN (17:12)
[2020-09-07] MEDS: CLONIDINE 0.1MG TABLET PO PRN (17:13)
[2020-09-08] MEDS: ACETAMINOPHEN 325MG TABLET PO PRN ×3 (01:34→20:21)
[2020-09-08 02:00] VITALS: BP 164/86
[2020-09-08] MEDS: CLONIDINE 0.1MG TABLET PO PRN (02:01)
[2020-09-08] MEDS: DIPHENHYDRAMINE 50MG/ML VIAL IV PRN (03:03)
[2020-09-08 05:30] VITALS: BP 156/101
[2020-09-08] MEDS: CEFTRIAXONE 2 G in DEXTROSE 5% WATER 50 ML IV SCH (06:29)
[2020-09-08 08:00] VITALS: BP 152/88
[2020-09-08] MEDS: LEVOFLOXACIN 250MG TABLET PO SCH (10:12)
[2020-09-08 12:00] VITALS: BP 168/90
[2020-09-08] MEDS: HYDROCODONE/ACETAMINOPHEN 10/325MG TABLET PO PRN ×2 (13:11→20:15)
[2020-09-08 16:00] VITALS: BP 145/86
[2020-09-08 20:00] VITALS: BP 144/85
[2020-09-09 00:44] VITALS: BP 135/77
[2020-09-09 04:00] VITALS: BP 141/89
[2020-09-09] MEDS: CEFTRIAXONE 2 G in DEXTROSE 5% WATER 50 ML IV SCH (05:27)
[2020-09-09] MEDS: HYDROCODONE/ACETAMINOPHEN 10/325MG TABLET PO PRN ×3 (05:33→19:14)
[2020-09-09 08:00] VITALS: BP 140/85
[2020-09-09 12:00] VITALS: BP 145/90
[2020-09-09] MEDS: DEXAMETHASONE 4MG/ML 1ML VIAL IV SCH (14:07)
[2020-09-09] MEDS: ALBUTEROL 6.7GM HFA INHALER ORI SCH ×2 (14:40→19:15)
[2020-09-09 16:00] VITALS: BP 181/97
[2020-09-09 20:00] VITALS: BP 147/91
[2020-09-09 20:10] LABS: BASOPHILS % 0.5 % (0.0-2.0); HEMATOCRIT. 33.9 % (42.0-52.0); HEMOGLOBIN. 11.4 g/dL (14.0-18.0); MEAN CORPUSCULAR HEMOGLOBIN 30.7 pg (28.0-32.0); MEAN CORPUSCULAR VOLUME 91.2 fL (80.0-94.0); MEAN PLATELET VOLUME 8.1 fl (7.4-10.4); MONOCYTES % 3.7 % (2.0-8.0); NEUTROPHILS % 81.8 % (40.0-76.0); PLATELET 186 x1000/uL (130-400); RED BLOOD CELL COUNT 3.72 mill/uL (4.7-6.1); RED CELL DISTRIBUTION WIDTH 19.4 % (11.6-14.6)
[2020-09-10] VITALS: BP 143/84
[2020-09-10] MEDS: ALBUTEROL 6.7GM HFA INHALER ORI SCH ×4 (01:22→18:07)
[2020-09-10] MEDS: HYDROCODONE/ACETAMINOPHEN 10/325MG TABLET PO PRN ×3 (01:32→16:36)
[2020-09-10 04:00] VITALS: BP 132/78
[2020-09-10 08:15] VITALS: BP 167/90
[2020-09-10 08:57] LABS: BASOPHILS % 0.3 % (0.0-2.0); HEMOGLOBIN. 10.4 g/dL (14.0-18.0); LYMPHOCYTES % 23.6 % (20.0-50.0); MEAN CORPUSCULAR HEMOGLOBIN 30.3 pg (28.0-32.0); MEAN CORPUSCULAR VOLUME 90.1 fL (80.0-94.0); MEAN PLATELET VOLUME 8.5 fl (7.4-10.4); MONOCYTES % 10.4 % (2.0-8.0); NEUTROPHILS % 65.7 % (40.0-76.0); PLATELET 198 x1000/uL (130-400); RED BLOOD CELL COUNT 3.44 mill/uL (4.7-6.1); RED CELL DISTRIBUTION WIDTH 19.5 % (11.6-14.6)
[2020-09-10] MEDS: LEVOFLOXACIN 250MG TABLET PO SCH (09:29)
[2020-09-10] MEDS: DEXAMETHASONE 4MG/ML 1ML VIAL IV SCH (09:29)
[2020-09-10 12:00] VITALS: BP 167/90
[2020-09-10 16:00] VITALS: BP 153/96
[2020-09-10] MEDS: CLONIDINE 0.1MG TABLET PO PRN (16:36)
[2020-09-10 20:00] VITALS: BP 125/77
[2020-09-10] MEDS: HEPARIN 5000 UNITS/ML VIAL SUBCUT SCH (21:30)
[2020-09-11] VITALS: BP 147/89
[2020-09-11] MEDS: HYDROCODONE/ACETAMINOPHEN 10/325MG TABLET PO PRN ×4 (00:18→22:40)
[2020-09-11 04:00] VITALS: BP 151/87
[2020-09-11 08:00] VITALS: BP 133/85
[2020-09-11 08:32] LABS: BASOPHILS % 0.4 % (0.0-2.0); HEMATOCRIT. 33.1 % (42.0-52.0); HEMOGLOBIN. 11.2 g/dL (14.0-18.0); LYMPHOCYTES % 20.1 % (20.0-50.0); MEAN CORPUSCULAR HEMOGLOBIN 30.5 pg (28.0-32.0); MEAN CORPUSCULAR VOLUME 90.1 fL (80.0-94.0); MONOCYTES % 7.1 % (2.0-8.0); NEUTROPHILS % 72.4 % (40.0-76.0); RED BLOOD CELL COUNT 3.67 mill/uL (4.7-6.1); RED CELL DISTRIBUTION WIDTH 18.9 % (11.6-14.6)
[2020-09-11] MEDS: DEXAMETHASONE 4MG/ML 1ML VIAL IV SCH (09:55)
[2020-09-11] MEDS: HEPARIN 5000 UNITS/ML VIAL SUBCUT SCH ×2 (09:56→20:56)
[2020-09-11 10:44] LABS: PLATELET 204 x1000/uL (130-400)
[2020-09-11] MEDS ORDERED: SODIUM BICARBONATE 8.4% 1 MEQ/ML 50ML SYR IV NR (11:00)
[2020-09-11] MEDS ORDERED: INSULIN REGULAR (HUMULIN R) UD 100 UNITS/ML SYR IV NR (11:00)
[2020-09-11] MEDS ORDERED: SODIUM POLYSTYRENE SULFONATE 15 G/60 ML BOT PO NR (11:00)
[2020-09-11] MEDS ORDERED: DEXTROSE 50% WATER 50ML SYRINGE IV NR (11:00)
[2020-09-11] MEDS ORDERED: LACTULOSE 20G/30ML UDC PO PRN (12:30)
[2020-09-11] MEDS ORDERED: BISACODYL 10MG SUPP PR PRN (12:30)
[2020-09-11 16:00] VITALS: BP 131/72
[2020-09-11] MEDS: ALBUTEROL 6.7GM HFA INHALER ORI SCH ×2 (17:36→20:56)
[2020-09-11 20:00] VITALS: BP 135/88
[2020-09-12] VITALS: BP 146/95
[2020-09-12] MEDS: ALBUTEROL 6.7GM HFA INHALER ORI SCH ×4 (00:39→18:38)
[2020-09-12 07:26] LABS: BASOPHILS % 0.2 % (0.0-2.0); HEMATOCRIT. 32.4 % (42.0-52.0); HEMOGLOBIN. 10.7 g/dL (14.0-18.0); LYMPHOCYTES % 13.2 % (20.0-50.0); MEAN CORPUSCULAR HEMOGLOBIN 29.7 pg (28.0-32.0); MEAN CORPUSCULAR VOLUME 89.6 fL (80.0-94.0); MEAN PLATELET VOLUME 8.8 fl (7.4-10.4); MONOCYTES % 6.7 % (2.0-8.0); NEUTROPHILS % 79.9 % (40.0-76.0); PLATELET 210 x1000/uL (130-400); RED BLOOD CELL COUNT 3.61 mill/uL (4.7-6.1); RED CELL DISTRIBUTION WIDTH 19.4 % (11.6-14.6)
[2020-09-12 08:00] VITALS: BP 141/74
[2020-09-12] MEDS: LEVOFLOXACIN 250MG TABLET PO SCH (08:53)
[2020-09-12] MEDS: DEXAMETHASONE 4MG/ML 1ML VIAL IV SCH (08:55)
[2020-09-12] MEDS: HYDROCODONE/ACETAMINOPHEN 10/325MG TABLET PO PRN ×2 (08:55→18:43)
[2020-09-12] MEDS: HEPARIN 5000 UNITS/ML VIAL SUBCUT SCH ×2 (08:57→21:06)
[2020-09-12 12:12] VITALS: BP 152/85
[2020-09-12] MEDS ORDERED: SODIUM POLYSTYRENE SULFONATE 15 G/60 ML BOT PO NR (14:00)
[2020-09-12 21:00] VITALS: BP 181/110
[2020-09-12] MEDS: CLONIDINE 0.1MG TABLET PO PRN (21:06)
[2020-09-13] VITALS: BP 170/107
[2020-09-13] MEDS ORDERED: HYDRALAZINE 20MG/ML VIAL IV PRN (00:45)
[2020-09-13] MEDS: ALBUTEROL 6.7GM HFA INHALER ORI SCH ×4 (01:05→19:04)
[2020-09-13] MEDS: HYDROCODONE/ACETAMINOPHEN 10/325MG TABLET PO PRN ×2 (01:51→09:15)
[2020-09-13 04:00] VITALS: BP 126/71
[2020-09-13 08:00] VITALS: BP 149/79
[2020-09-13] MEDS: DEXAMETHASONE 4MG/ML 1ML VIAL IV SCH (09:13)
[2020-09-13] MEDS: HEPARIN 5000 UNITS/ML VIAL SUBCUT SCH ×2 (09:14→22:50)
[2020-09-13 12:00] VITALS: BP 143/76
[2020-09-13 16:00] VITALS: BP 139/89
[2020-09-13 20:00] VITALS: BP 166/86
[2020-09-13] MEDS: ACETAMINOPHEN 325MG TABLET PO PRN (23:04)
[2020-09-14] VITALS: BP 149/80
[2020-09-14] MEDS: ALBUTEROL 6.7GM HFA INHALER ORI SCH ×3 (01:00→13:00)
[2020-09-14 04:00] VITALS: BP 139/80
[2020-09-14 08:00] VITALS: BP 173/89
[2020-09-14] MEDS: DEXAMETHASONE 4MG/ML 1ML VIAL IV SCH (10:51)
[2020-09-14] MEDS: HEPARIN 5000 UNITS/ML VIAL SUBCUT SCH ×2 (10:53→23:55)
[2020-09-14 12:00] VITALS: BP 161/92
[2020-09-14 20:00] VITALS: BP 148/87
[2020-09-15] VITALS: BP 151/83
[2020-09-15 04:00] VITALS: BP 166/103
[2020-09-15] MEDS: CLONIDINE 0.1MG TABLET PO PRN (08:28)
[2020-09-15 13:29] LABS: BASOPHILS % 0.1 % (0.0-2.0); HEMATOCRIT. 29.3 % (42.0-52.0); HEMOGLOBIN. 9.9 g/dL (14.0-18.0); LYMPHOCYTES % 7.3 % (20.0-50.0); MEAN CORPUSCULAR HEMOGLOBIN 30.1 pg (28.0-32.0); MEAN CORPUSCULAR VOLUME 88.9 fL (80.0-94.0); MEAN PLATELET VOLUME 8.7 fl (7.4-10.4); MONOCYTES % 5.5 % (2.0-8.0); NEUTROPHILS % 87.1 % (40.0-76.0); PLATELET 188 x1000/uL (130-400); RED BLOOD CELL COUNT 3.29 mill/uL (4.7-6.1); RED CELL DISTRIBUTION WIDTH 19.2 % (11.6-14.6)
[2020-09-15 13:41] LABS: CHLORIDE 95 mEq/L (98-107)
[2020-09-15] MEDS: DEXAMETHASONE 4MG/ML 1ML VIAL IV SCH (19:04)
[2020-09-15] MEDS: AMLODIPINE 5MG TABLET PO SCH (19:05)
[2020-09-15] MEDS: HEPARIN 5000 UNITS/ML VIAL SUBCUT SCH (19:06)
[2020-09-15 20:00] VITALS: BP 130/76
[2020-09-16] VITALS: BP 126/61
[2020-09-16] MEDS: HEPARIN 5000 UNITS/ML VIAL SUBCUT SCH ×3 (02:41→23:05)
[2020-09-16] MEDS: ACETAMINOPHEN 325MG TABLET PO PRN (02:47)
[2020-09-16 04:00] VITALS: BP 106/61
[2020-09-16 08:00] VITALS: BP 113/65
[2020-09-16] MEDS: AMLODIPINE 5MG TABLET PO SCH (09:00)
[2020-09-16] MEDS: DEXAMETHASONE 4MG/ML 1ML VIAL IV SCH (11:15)
[2020-09-16] MEDS: ALBUTEROL 6.7GM HFA INHALER ORI SCH ×3 (11:16→18:47)
[2020-09-16 12:00] VITALS: BP 130/73
[2020-09-16 16:15] VITALS: BP 136/78
[2020-09-16] MEDS: CEFEPIME 1,000 MG in DEXTROSE 5% WATER 50 ML IV SCH (17:00)
[2020-09-16 20:00] VITALS: BP 146/88
[2020-09-17] VITALS: BP 139/80
[2020-09-17 00:29] LABS: HEMATOCRIT. 30.8 % (42.0-52.0); HEMOGLOBIN. 10.3 g/dL (14.0-18.0); MEAN CORPUSCULAR HEMOGLOBIN 29.7 pg (28.0-32.0); MEAN CORPUSCULAR VOLUME 89.1 fL (80.0-94.0); MEAN PLATELET VOLUME 8.6 fl (7.4-10.4); PLATELET 202 x1000/uL (130-400); RED BLOOD CELL COUNT 3.46 mill/uL (4.7-6.1); RED CELL DISTRIBUTION WIDTH 19.2 % (11.6-14.6)
[2020-09-17] MEDS: ALBUTEROL 6.7GM HFA INHALER ORI SCH ×4 (02:06→19:00)
[2020-09-17 04:00] VITALS: BP 141/60
[2020-09-17 04:59] LABS: BG CARBOXYHEMOGLOBIN 0.3 % (0.5-1.5); BG DEOXYHEMOGLOBIN 8.1 % (0.0-5.0); BG FRACTION INSPIRED OXYGEN 100; BG HCO3 ACT 22.9 mmol/L (22.0-26.0); BG METHEMOGLOBIN 0.2 % (0.0-1.5); BG OXYGEN SATURATION 91.9 % (92.0-98.5); BG OXYHEMOGLOBIN 91.4 % (94.0-97.0); BG PCO2 35.1 mmHg (35.0-45.0); BG PH 7.432 (7.350-7.450); BG PO2 65.3 mmHg (75.0-100.0); BG SAMPLE SITE RIGHT RADIAL; BG TOTAL HEMOGLOBIN 11.3 g/dL (12.0-18.0); BG VENT MODE MASK - NRB
[2020-09-17 08:00] VITALS: BP 145/83
[2020-09-17] MEDS: HEPARIN 5000 UNITS/ML VIAL SUBCUT SCH ×3 (09:00→21:56)
[2020-09-17] MEDS: DEXAMETHASONE 4MG/ML 1ML VIAL IV SCH (10:09)
[2020-09-17] MEDS: AMLODIPINE 5MG TABLET PO SCH (10:10)
[2020-09-17 12:00] VITALS: BP 155/90
[2020-09-17 14:42] LABS: PLATELET ESTIMATE NORMAL
[2020-09-17 16:00] VITALS: BP 112/73
[2020-09-17] MEDS: CEFEPIME 1,000 MG in DEXTROSE 5% WATER 50 ML IV SCH (17:00)
[2020-09-17 20:00] VITALS: BP 117/64
[2020-09-18] VITALS: BP 136/71
[2020-09-18] MEDS: ALBUTEROL 6.7GM HFA INHALER ORI SCH ×4 (02:33→19:00)
[2020-09-18] MEDS: HYDROCODONE/ACETAMINOPHEN 5/325MG TABLET PO PRN ×3 (02:33→14:31)
[2020-09-18 04:00] VITALS: BP 156/95
[2020-09-18 08:00] VITALS: BP 139/81
[2020-09-18] MEDS: DEXAMETHASONE 4MG/ML 1ML VIAL IV SCH (08:42)
[2020-09-18] MEDS: HEPARIN 5000 UNITS/ML VIAL SUBCUT SCH ×2 (08:42→21:47)
[2020-09-18] MEDS: AMLODIPINE 5MG TABLET PO SCH (08:43)
[2020-09-18 12:00] VITALS: BP 151/87
[2020-09-18 16:00] VITALS: BP 156/90
[2020-09-18] MEDS: CEFEPIME 1,000 MG in DEXTROSE 5% WATER 50 ML IV SCH (16:39)
[2020-09-18 20:00] VITALS: BP 150/82
[2020-09-19] VITALS: BP 145/95
[2020-09-19] MEDS: ALBUTEROL 6.7GM HFA INHALER ORI SCH ×4 (01:00→18:21)
[2020-09-19 04:00] VITALS: BP 159/91
[2020-09-19 08:00] VITALS: BP 149/90
[2020-09-19] MEDS: HYDROCODONE/ACETAMINOPHEN 5/325MG TABLET PO PRN ×2 (09:46→18:22)
[2020-09-19] MEDS: AMLODIPINE 5MG TABLET PO SCH (09:47)
[2020-09-19] MEDS: DEXAMETHASONE 4MG/ML 1ML VIAL IV SCH (09:47)
[2020-09-19] MEDS: HEPARIN 5000 UNITS/ML VIAL SUBCUT SCH ×2 (09:49→23:21)
[2020-09-19 12:00] VITALS: BP 94/48
[2020-09-19 15:42] LABS: HEMATOCRIT. 31.1 % (42.0-52.0); HEMOGLOBIN. 10.7 g/dL (14.0-18.0); MEAN CORPUSCULAR HEMOGLOBIN 30.4 pg (28.0-32.0); MEAN CORPUSCULAR VOLUME 88.7 fL (80.0-94.0); MEAN PLATELET VOLUME 8.6 fl (7.4-10.4); PLATELET 174 x1000/uL (130-400); RED BLOOD CELL COUNT 3.51 mill/uL (4.7-6.1); RED CELL DISTRIBUTION WIDTH 19.1 % (11.6-14.6)
[2020-09-19 16:00] VITALS: BP 161/99
[2020-09-19 17:24] LABS: PLATELET ESTIMATE NORMAL
[2020-09-19] MEDS: CEFEPIME 1,000 MG in DEXTROSE 5% WATER 50 ML IV SCH (18:21)
[2020-09-19 20:00] VITALS: BP 100/58
[2020-09-19] MEDS ORDERED: HEPARIN SODIUM 1,000 UNIT/1ML VIAL IV SCH (20:15)
[2020-09-20] VITALS: BP 143/87
[2020-09-20 04:00] VITALS: BP_SYST 143; BP_SYST 144; BP_DIAS 83; BP_DIAS 87
[2020-09-20 08:00] VITALS: BP 155/92
[2020-09-20] MEDS: HYDROCODONE/ACETAMINOPHEN 5/325MG TABLET PO PRN ×2 (10:04→19:13)
[2020-09-20] MEDS: AMLODIPINE 5MG TABLET PO SCH (10:05)
[2020-09-20] MEDS: ALBUTEROL 6.7GM HFA INHALER ORI SCH ×3 (10:09→18:37)
[2020-09-20] MEDS: HEPARIN 5000 UNITS/ML VIAL SUBCUT SCH ×2 (10:12→20:10)
[2020-09-20 10:52] LABS: BASOPHILS % 0.1 % (0.0-2.0); EOSINOPHILS % 0.1 % (0.0-5.0); HEMATOCRIT. 30.1 % (42.0-52.0); HEMOGLOBIN. 10.2 g/dL (14.0-18.0); LYMPHOCYTES % 8.3 % (20.0-50.0); MEAN CORPUSCULAR HEMOGLOBIN 30.2 pg (28.0-32.0); MEAN CORPUSCULAR VOLUME 89.5 fL (80.0-94.0); MEAN PLATELET VOLUME 8.5 fl (7.4-10.4); MONOCYTES % 8.1 % (2.0-8.0); NEUTROPHILS % 83.4 % (40.0-76.0); PLATELET 193 x1000/uL (130-400); RED BLOOD CELL COUNT 3.36 mill/uL (4.7-6.1); RED CELL DISTRIBUTION WIDTH 18.8 % (11.6-14.6)
[2020-09-20 12:00] VITALS: BP 142/64
[2020-09-20 16:00] VITALS: BP 148/78
[2020-09-20] MEDS ORDERED: SODIUM POLYSTYRENE SULFONATE 15 G/60 ML BOT PO ONE (17:45)
[2020-09-20] MEDS ORDERED: LACTULOSE 20G/30ML UDC PO NR (18:00)
[2020-09-20] MEDS: DOCUSATE SODIUM SUGAR FREE 100MG/10ML UDC NG SCH (19:10)
[2020-09-20] MEDS: CEFEPIME 1,000 MG in DEXTROSE 5% WATER 50 ML IV SCH (19:34)
[2020-09-20] MEDS: DIPHENHYDRAMINE 50MG/ML VIAL IV PRN (19:35)
[2020-09-20 20:00] VITALS: BP 160/92
[2020-09-21] VITALS: BP 138/91
[2020-09-21 04:00] VITALS: BP 145/97
[2020-09-21 07:39] LABS: HEMATOCRIT. 31.1 % (42.0-52.0); HEMOGLOBIN. 10.3 g/dL (14.0-18.0); MEAN CORPUSCULAR HEMOGLOBIN 29.6 pg (28.0-32.0); MEAN CORPUSCULAR VOLUME 89.5 fL (80.0-94.0); MEAN PLATELET VOLUME 8.6 fl (7.4-10.4); PLATELET 171 x1000/uL (130-400); RED BLOOD CELL COUNT 3.47 mill/uL (4.7-6.1); RED CELL DISTRIBUTION WIDTH 18.6 % (11.6-14.6)
[2020-09-21 08:00] VITALS: BP 114/61
[2020-09-21] MEDS: DOCUSATE SODIUM SUGAR FREE 100MG/10ML UDC NG SCH (10:46)
[2020-09-21] MEDS: HEPARIN 5000 UNITS/ML VIAL SUBCUT SCH (10:47)
[2020-09-21] MEDS: AMLODIPINE 5MG TABLET PO SCH (10:52)
[2020-09-21] MEDS: ALBUTEROL 6.7GM HFA INHALER ORI SCH (11:06)
[2020-09-21 17:17] LABS: PLATELET ESTIMATE NORMAL
== END 2020-09-21 14:08 | disposition expired | DRG 871 ==
LOC: ER 12:50 → EDBEDREQ 16:10 → EDBEDREQTM 16:10 → EDBEDREQSVC 16:10 → MICUSO 16:40 → EDBEDREQTM 16:53 → EDBEDREQ 16:53 → 6WST 22:17 → 8WST 09-08 05:26
PROVIDERS: ADMIT Internal Medicine; ATTEND Internal Medicine
PROC: 5A1D70Z Performance of Urinary Filtration, Intermittent, Less than 6 Hours Per Day (ICD-10-PCS; principal; 2020-09-07)
PROC: 5A1D70Z Performance of Urinary Filtration, Intermittent, Less than 6 Hours Per Day (ICD-10-PCS; 2020-09-10)
PROC: 5A1D70Z Performance of Urinary Filtration, Intermittent, Less than 6 Hours Per Day (ICD-10-PCS; 2020-09-13)
PROC: 5A1D70Z Performance of Urinary Filtration, Intermittent, Less than 6 Hours Per Day (ICD-10-PCS; 2020-09-15)
PROC: 5A1D70Z Performance of Urinary Filtration, Intermittent, Less than 6 Hours Per Day (ICD-10-PCS; 2020-09-17)
PROC: 5A1D70Z Performance of Urinary Filtration, Intermittent, Less than 6 Hours Per Day (ICD-10-PCS; 2020-09-19)
PROC: 5A1D70Z Performance of Urinary Filtration, Intermittent, Less than 6 Hours Per Day (ICD-10-PCS; 2020-09-21)
PROC: 5A12012 Performance of Cardiac Output, Single, Manual (ICD-10-PCS; 2020-09-21)
DX: A41.89 Other specified sepsis (principal); U07.1 COVID-19; J12.89 Other viral pneumonia; N18.6 End stage renal disease; J96.01 Acute respiratory failure with hypoxia; I12.0 Hypertensive chronic kidney disease with stage 5 chronic kidney disease or end stage renal disease; N39.0 Urinary tract infection, site not specified; E11.22 Type 2 diabetes mellitus with diabetic chronic kidney disease; D63.8 Anemia in other chronic diseases classified elsewhere; R65.20 Severe sepsis without septic shock; R33.9 Retention of urine, unspecified; E87.5 Hyperkalemia; R45.1 Restlessness and agitation; M54.89 Other dorsalgia; Z66 Do not resuscitate; K59.00 Constipation, unspecified; Z91.14 Patient's other noncompliance with medication regimen; Z99.2 Dependence on renal dialysis; Z87.440 Personal history of urinary (tract) infections; Z79.899 Other long term (current) drug therapy
CPT/HCPCS: 36415; 36600; 71045; 80048; 80053; 80076; 82375; 82728; 82805; 82962; 83605; 84145; 84484; 85025; 85379; 86140; 87070; 87106; 93005; 93970; 96365; 96368; 96375; 99291; C1893; J0360; J0692; J0696; J1100; J1200; J1580; J1644; J1815; J2270; J3490; J7040; J7050; J7060; U0003